=== PATIENT | female | born 1970 | race Caucasian/White ===

== ENCOUNTER → 2017-12-30 15:58 | Outpatient (CLI) | payer OTHER, SELFPAY ==
[2018-01-03 06:23] LABS: HPV APTIMA, High Risk Negative (Negative)
== END ==
PROVIDERS: Family Provider Family Medicine; PCP Family Medicine; Visit Provider Obstetrics & Gynecology
DX: N39.41 Urge incontinence (principal); Z12.4 Encounter for screening for malignant neoplasm of cervix
CPT/HCPCS: 87086; 87088; 88175; G0145

== ENCOUNTER → 2018-03-19 10:24 | Outpatient (CLI) | payer OTHER, SELFPAY ==
--- NOTE | 2018-03-19 10:27 | BI_ITS ---
MAMMOGRAPHY - BILATERAL SCREENING REASON FOR EXAM: Female, 47 years old. Routine annual screening examination. PERTINENT HISTORY: Non-contributory. Ultrasound-guided left breast biopsy performed on January 05, 2017. TECHNIQUE: Digital bilateral breast marie (3D mammographic acquisition) in the CC and MLO projections. 2-D mediolateral oblique (MLO) and craniocaudad (CC) views of both breasts were obtained. CAD: Full Field Digital Mammography with Computer Added Detection was performed. COMPARISON: Comparison is made with prior examination dated December 03, 2016. FINDINGS: Breast Composition: The breasts are heterogeneously dense, which may obscure small masses. There are no dominant masses or suspicious calcifications. A tissue clip marker from prior biopsy is seen in the inferior medial deep portion of the left breast. The nodular density at that site as result. No other significant abnormalities are identified. BI/SCREENING MAMM (CAD), BILAT IMPRESSION: Stable bilateral screening mammogram. Yearly follow-up mammogram recommended. (A) ASSESSMENT CATEGORY: BIRADS Category 2: Benign. A letter regarding these results will be sent to the patient by the facility within 30 days. Approximately 10% of breast cancers are not detected by mammography. A normal mammogram should not delay biopsy of a clinically suspicious abnormality. [id number] Electronically Signed: Eugene Castaneda MD at 13:15 EDT Tel [phone], Service support ,
== END ==
PROVIDERS: Family Provider Family Medicine; PCP Family Medicine; Visit Provider Obstetrics & Gynecology
DX: Z12.31 Encounter for screening mammogram for malignant neoplasm of breast (principal)
CPT/HCPCS: 77063; 77067

== ENCOUNTER 2018-04-16 06:58 | Day surgery (SDC) | payer OTHER, SELFPAY ==
[2018-04-16] VITALS (7 sets, daily range): BP systolic 92–130; BP diastolic 57–92; PULSE 59–63; RESP 16–18; TEMP 36.8–37.3; O2SAT 98–100; BMI 35.0
--- NOTE | 2018-04-16 07:46 | H&P.OPEN ---
Past Medical/Surgical History - Planned Operation Planned Operative Procedure/s: colonoscopy/open access Date of Operative Procedure: 04/16/18 Permit Signed: No S.O.S: No Is This Patient Having a Total Joint: No - Previous Hospitalizations/Surgeries HX Hospitalizations: No HX of Surgeries: csection x2. carpal tunnel bilat. invitro. scar tissue removed from lip as child Any Problems With Anesthesia: No You/Your Family Experience Fever (Hyperthermia) With Anes: No Cholinesterase deficiency: No - Cardiovascular Hx Chest Pain within Last 2 months: No Hx of Irregular Heartbeat and/or Afib: No Hx Heart Attack: No Hx Congestive Heart Failure: No Hx Rheumatic Fever: No Hx Hypertension: Yes - controlled with med Hx Internal Defibrillator: No Hx Pacemaker: No Hx Cardiac Catheterization: No Hx Cardiac Surgery/Stents/Etc.: No Hx Stress Test: No HX Edema: Yes - only during Hx Pain in Legs when Walking/Leg Cramps: No - Respiratory Chronic Cough: No HX of Shortness of Breath: No Hoarseness: No Hx Chronic Obstructive Pulmonary Disease (COPD): No Hx Asthma: No Hx Emphysema: No Hx Sleep Apnea: No Hx Oxygen Use at Home: No Hx Respiratory Tract Infection/Cold (presently): No Do You Snore Loudly (louder than talking or can be heard): Yes Do You Often Feel Tired/ Fatigued/ Sleepy Dring Daytime?: No Has Anyone Observed You Stop Breathing During Sleep?: No Result (for STOP score): Positive Hx Smoking: No Smoking Status: Never smoker - Gastrointestinal Hx Gastroesophageal Reflux: No Hx Gastrointestinal Disorders: No Hx Gastrointestinal Bleed: No Hx Ulcer: No Hx Hiatal Hernia: No Difficulty Chewing/Swallowing: No Recent Onset of Swallowing Problems: No Special diet followed at home: No Hx Unplanned Weight Loss of 20#: No HX Unplanned Weight Gain of 20#: No - Neurological Hx Seizures: No HX Syncope/Blackout Spells/Unconsciousness: No Hx CVA/Stroke: No Hx Transient Ischemic Attacks (TIA): No Hx Multiple Sclerosis: No Hx Parkinson's Disease: No Hx Head/Neck Injury: No Hx Headaches: Yes - migraines in the past Hx Back Injury/Pain: Yes - lower back pain at times Recent Onset of Speech Difficulty: No Restless Legs: No Does patient have nerve stimulator: No Patient instructed to have device shut off: No Rep notified?: No - Blood Disorder Hx Leukemia: No Bleeding Tendencies: Yes - easy bruising Hx Deep Vein Thrombosis: No Hx High Cholesterol: No Blood Transmitted Disease: No Hx Hepatitis: No Hx Cirrhosis: No Hx Anemia: Yes - during only Hx Blood Disorders: No - Reproduction : No Is Patient Lactating: No Hx Hysterectomy: No Hx Tubal Ligation: No Are You Post Menopause: Yes - Genitourinary Hx Renal Disease: No - Musculoskeletal Hx Arthritis: Yes Hx Rheumatoid Arthritis: No Hx Gout: No Recent Onset of an Orthopedic Problem: No - Endocrine Hx Diabetes: No Thyroid Disease: No Hx Steroid Therapy: No - Psycho/Social Hx Substance Use: No Hx Alcohol Use: No Hx Anxiety: Yes - on med Hx Depression: Yes - on med Mental Illness: No - nervous breakdown after childbirth Hx Dementia: No - Miscellaneous Hx Cancer: No Recent Exposure to Contagious Disease: No Active MRSA: No Hx of C-Diff: No Any Loose Teeth: No Allergies No Known Allergies Allergy (Verified 04/16/18 07:24) - Discharge Is Pt Admitted From a Longterm, or a Usp: No Who Could Help: family After D/C, Where Do you Plan to Go: Return Home - Physical Exam General: Alert, Oriented x3, Cooperative, No apparent distress Lungs: Normal air movement Cardiovascular: Regular rate, Regular Rhythm Abdomen: Soft, Non Tender, Non-Distended Vital Signs Temp Pulse Resp BP Pulse Ox 98.2 F 63 16 130/84 H 100 04/16/18 07:25 04/16/18 07:25 04/16/18 07:25 04/16/18 07:25 04/16/18 07:25 Oxygen Delivery Method Room Air Weight: 210 lb 8.663 oz Body Mass Index (BMI) 35.0 Assessment/Plan 48-year-old female for screening colonoscopy 1. Patient reports she is not having any issues at this time. She has no abdominal pain or blood in her stool. She does have a family history of colon cancer in her grandmother. She has never had a colonoscopy in the past. 2. I explained endoscopy in detail to the patient. I explained the risks including but not limited to stroke or heart attack with anesthesia, perforation of the GI tract, bleeding, infection. I explained that any of these could necessitate further emergency surgery. The patient understands and all questions were answered sufficiently. The patient wishes to proceed with procedure. Kamran Rivera MD Pager: [facility] [address] [place] [address] [address] [place] [address] Office: Surgery Risks - Colonoscopy Risks Include but are not Limited To: Risks include but are not limited to: Bleeding, perforation requiring further surgery, inability to complete colonoscopy requiring barium enema.
--- NOTE | 2018-04-16 08:10 | PCM.OPRPT ---
Problem List (1) Screen for colon cancer Status: Acute Report of Operation Date of Procedure: 04/16/18 Pre-Operative Diagnosis: Screening for colon cancer Post-Operative Diagnosis: Normal colonoscopy Surgery/Procedure Performed:: Colonoscopy Description of Procedure: The major risks and benefits associated with the procedure were explained to the patient in detail. The patient verbalized understanding and agreement with the same. The patient was brought to the endoscopy suite. After adequate sedation was achieved, the patient was placed in the left lateral decubitus position and a digital rectal exam was performed. This examination was within normal limits. A well-lubricated colonoscope was then inserted into the rectum and advanced under direct visualization to the level of the cecum. The bowel prep was good. The cecum was identified by both visual and anatomic landmarks. A photograph was taken of the end of the cecum. The scope was then fully withdrawn while examining the color, texture, anatomy and integrity of the mucosa from the cecum to the anal canal. The findings were consistent with normal colonic mucosa. Over 6 minutes were taken to examine the colonic mucosa. Upon reaching the rectum the scope was retroflexed to examine the distal rectal vault. The scope was then straightened and was completely retrieved upon exiting the anal canal and the procedure was terminated. The patient was then transferred to the recovery room in stable condition. Recommendations for follow up: 10 years
== END 2018-04-16 08:50 | disposition home or self-care (01) ==
LOC: EN 06:59 → AC 07:00
PROVIDERS: Family Provider Family Medicine; PCP Family Medicine; Visit Provider Surgery
PROC: 0DJD8ZZ Inspection of Lower Intestinal Tract, Via Natural or Artificial Opening Endoscopic (ICD-10-PCS; CPT 45378; principal; 2018-04-16 07:55)
DX: Z12.11 Encounter for screening for malignant neoplasm of colon (principal); Z80.0 Family history of malignant neoplasm of digestive organs; I10 Essential (primary) hypertension
CPT/HCPCS: 45378; J7120

== ENCOUNTER → 2018-06-18 10:25 | Outpatient (CLI) | payer OTHER, SELFPAY ==
[2018-06-18 10:29] LABS: Bacteria 0 SEEN /hpf (None Seen); Mucous, Urine 0 SEEN /hpf (<or=2+); Red Blood Cells-Urine 0 SEEN /hpf (0-5)
[2018-06-18 12:13] LABS: Absolute Lymphocyte Count 1.49 X10^3/ul (0.83-4.51); Absolute Neutrophil Count 3.2 X10^3/uL (2.0-7.7); Basophil# 0.03 X10^3/uL; Basophil% 0.5 % (0-1); Eosinophil# 0.26 X10^3/uL; Eosinophils% 4.7 % (0-5); Hematocrit 38.5 % (37-47); Hemoglobin 12.3 g/dl (12.0-15.0); Lymphocyte # 1.49 X10^3/ul (4.0); Lymphocyte % 26.9 % (19-41); Mean Corp Hgb Conc 31.9 g/gl (32-36); Mean Corpuscular Hgb 29.7 pg (27.0-32.0); Mean Platelet Vol. 9.6 fl (6.2-12.0); Monocyte# 0.55 X10^3/uL; Monocyte% 9.9 % (0-10); Neutrophil # 3.19 X10^3/uL (2.7-7.7); Neutrophil % 57.8 % (47-70); Platelet Count 313 K/mm3 (150-450); RBC Distribution Width CV 12.9 % (11.6-14.6); RBC Distribution Width SD 42.7 fl (35.1-43.9); Red Blood Count 4.14 M/mm3 (4.2-5.4); White Blood Count 5.5 K/mm3 (4.4-11.0)
[2018-06-18 12:15] LABS: POSITIVE COUNT NO; POSITIVE DIFFERENTIAL NO; POSITIVE MORPHOLOGY NO
[2018-06-18 12:22] LABS: Color, Urine Yellow (Yellow); Glucose, Dipstick Normal (Normal); Ketone-Dipstick Negative (Negative); Leukocyte Esterase-Dipstick 500 /ul (Negative); Nitrite-Dipstick Negative (Negative); Occult Blood-Urine Negative /ul (Negative); Protein-Dipstick Negative (Negative); Specific Gravity, Urine 1.015 (1.002-1.030); Urine Bilirubin Dipstick Negative (Negative); Urine Clarity Clear (Clear); Urine Urobilinogen Normal (Normal)
[2018-06-18 12:29] LABS: Squamous Epithelial Cells - UA 5-10 SEEN /hpf (5-10); White Blood Cells 5-10 SEEN /hpf (0-5)
[2018-06-18 12:49] LABS: ALB/GLOB Ratio 1.1 RATIO (0.9-2.4); AST(SGOT) 22 U/L (15-37); Alanine Aminotransfer ALT/SGPT 46 U/L (13-56); Albumin, Serum 4.3 g/dL (3.2-5.0); Alkaline Phosphatase 62 U/L (45-117); Anion Gap 9 (5-15); BUN 15 mg/dL (7-18); BUN/Creat Ratio 24.6 RATIO (10-20); Calcium,Total 9.6 mg/dL (8.5-10.1); Chloride 104 mmol/L (98-107); Cholesterol 195 mg/dL (200); Creatinine, Serum 0.61 mg/dL (0.55-1.02); EST Glomerular Filtration Rate 110 mL/min (>60); Est Glom Filt Rate - Afr Amer 133 mL/min (>60); Globulin 3.8 g/dL (2.2-4.2); Glucose 83 mg/dL (74-106); High Density Lipoprotein 42 mg/dL; Potassium 4.1 mmol/L (3.5-5.1); Protein, Total 8.1 g/dL (6.4-8.2); Sodium Level 138 mmol/L (136-145); Thyroid Stim Hormone (TSH) 3.94 uIU/mL (0.358-3.74); Triglycerides 248 mg/dL; Very Low Density Lipoprotein 50 mg/dL (5-40)
== END ==
PROVIDERS: Family Provider Family Medicine; PCP Family Medicine; Visit Provider Family Medicine
DX: I10 Essential (primary) hypertension (principal)
CPT/HCPCS: 36415; 80053; 80061; 81001; 84443; 85025

== ENCOUNTER → 2018-06-25 09:54 | Outpatient (CLI) | payer OTHER, SELFPAY ==
[2018-06-25 12:47] LABS: T4 Free Direct 0.83 ng/dL (0.76-1.46)
[2018-06-30 11:51] LABS: Anti-Thyroglobulin AB < 1.0 IU/mL (0.0-0.9); Thyroglobulin, Serum Qt. 23.3 ng/mL (1.5-38.5); Thyroid Peroxidase AB 19 IU/mL (0-34)
== END ==
PROVIDERS: Family Provider Family Medicine; PCP Family Medicine; Visit Provider Family Medicine
DX: R79.89 Other specified abnormal findings of blood chemistry (principal)
CPT/HCPCS: 36415; 84432; 84439; 86376; 86800

== ENCOUNTER → 2018-11-16 11:49 | Outpatient (CLI) | payer OTHER, SELFPAY ==
[2018-11-06 10:20] VITALS: BMI 35.0
[2018-11-16 14:44] LABS: T4 Free Direct 0.88 ng/dL (0.76-1.46); Thyroid Stim Hormone (TSH) 3.97 uIU/mL (0.358-3.74)
[2018-11-18 10:20] LABS: Anti-Thyroglobulin AB < 1.0 IU/mL (0.0-0.9); Thyroglobulin, Serum Qt. 19.1 ng/mL (1.5-38.5); Thyroid Peroxidase AB 18 IU/mL (0-34)
== END ==
PROVIDERS: Family Provider Family Medicine; PCP Family Medicine; Visit Provider Family Medicine
DX: R79.89 Other specified abnormal findings of blood chemistry (principal); I10 Essential (primary) hypertension
CPT/HCPCS: 36415; 84432; 84439; 84443; 86376; 86800

== ENCOUNTER → 2018-11-19 10:34 | Outpatient (CLI) | payer OTHER, SELFPAY ==
[2018-11-06 10:20] VITALS: BMI 35.0
--- NOTE | 2018-11-19 10:38 | RAD_ITS ---
STUDY: X-RAY - LEFT KNEE REASON FOR EXAM: Female, 48 years old. Left knee pain TECHNIQUE: 3 view(s) of the knee. COMPARISON: None. FINDINGS: Normal visualized distal femur. Normal visualized proximal tibia and fibula. Normal proximal tibiofibular articulation. There is severe degenerative arthrosis of the medial femorotibial compartment with severe joint space narrowing. There is mild varus deformity. There is mild degenerative arthrosis of the lateral femorotibial compartment. There is moderate degenerative arthrosis of the patellofemoral articulation. Moderate sized osteophytes along the superior and inferior patella noted. There is a moderate volume joint effusion. There is soft tissue swelling of the anterior knee. RAD/Knee 3 Views IMPRESSION: Tricompartmental osteoarthrosis (medial dominant) with genu varus, joint effusion and anterior soft tissue swelling (possibly prepatellar bursal collection). Electronically Signed: Mike Bob MD at 7:52 EST , Service support ,
--- NOTE | 2018-11-19 10:38 | RAD_ITS ---
STUDY: X-RAY - RIGHT KNEE REASON FOR EXAM: Female, 48 years old. Right knee pain TECHNIQUE: 3 view(s) of the knee. COMPARISON: None. FINDINGS: Normal visualized distal femur. Normal visualized proximal tibia and fibula. Normal proximal tibiofibular articulation. There is moderate degenerative arthrosis of the medial femorotibial compartment with moderate joint space narrowing. There is mild degenerative arthrosis of the lateral femorotibial compartment. There is mild degenerative arthrosis of the patellofemoral articulation. There is a soft tissue prominence in the suprapatellar region suggesting a small volume joint effusion. The soft tissue structures are unremarkable. RAD/Knee 3 Views IMPRESSION: Medial dominant tricompartmental osteoarthrosis. Small joint effusion. Electronically Signed: Mike Bob MD at 7:53 EST , Service support ,
== END ==
PROVIDERS: Family Provider Family Medicine; PCP Family Medicine; Referring Provider Family Medicine; Visit Provider Family Medicine
DX: M25.561 Pain in right knee (principal); M25.562 Pain in left knee
CPT/HCPCS: 73562

== ENCOUNTER → 2019-04-11 10:33 | Outpatient (CLI) | payer OTHER, SELFPAY ==
[2018-11-06 10:20] VITALS: BMI 35.0
[2019-03-22 12:21] VITALS: BMI 35.0
--- NOTE | 2019-04-11 10:36 | BI_ITS ---
MAMMOGRAPHY - BILATERAL SCREENING 3-D TOMOSYNTHESIS REASON FOR EXAM: Female, 49 years old. Bilateral Screening 3-D tomosynthesis PERTINENT HISTORY: History of ultrasound guided biopsy of left breast in 2017. TECHNIQUE: 2-D mammograms and 3-D Tomosynthesis of the breast (s) were performed. CAD was performed. COMPARISON: March 19, 2018, December 30, 20122016, December 03, 2016 FINDINGS: The breast composition is Scattered benign calcifications are seen. No dense spiculated masses or suspicious microcalcifications are identified. No architectural distortion is identified. There is no skin thickening or retraction. There has been no significant change since the prior study. BI/SCREEN MAMM (CAD) W/ISAI BILAT IMPRESSION: No mammographic signs of malignancy. Routine yearly mammograms recommended. ASSESSMENT CATEGORY: BIRADS Category 2: Benign. A letter regarding these results will be sent to the patient by the facility within 30 days. FOLLOW UP RECOMMENDATION: Yearly follow up mammogram recommended. (A) Approximately 10% of breast cancers are not detected by mammography. A normal mammogram should not delay biopsy of a clinically suspicious abnormality. Electronically Signed: Salbador Burnham MD at 16:39 EDT , Service support ,
== END ==
PROVIDERS: Family Provider Family Medicine; PCP Family Medicine; Referring Provider Obstetrics & Gynecology; Visit Provider Obstetrics & Gynecology
DX: Z12.31 Encounter for screening mammogram for malignant neoplasm of breast (principal)
CPT/HCPCS: 77063; 77067

== ENCOUNTER → 2019-05-25 11:24 | Outpatient (CLI) | payer OTHER, SELFPAY ==
[2019-03-22 12:21] VITALS: BMI 35.0
[2019-05-25 14:04] LABS: Absolute Lymphocyte Count 1.66 X10^3/uL (0.83-4.51); Absolute Neutrophil Count 3.3 X10^3/uL (2.0-7.7); Basophil# 0.04 X10^3/uL; Basophil% 0.7 % (0-1); Eosinophil# 0.21 X10^3/uL; Eosinophils% 3.6 % (0-5); Hematocrit 38.4 % (37-47); Hemoglobin 12.2 g/dL (12.0-15.0); Lymphocyte # 1.66 X10^3/ul (4.0); Lymphocyte % 28.3 % (19-41); Mean Corp Hgb Conc 31.8 g/dL (32-36); Mean Corpuscular Volume 94.6 fL (81-99); Mean Platelet Vol. 9.6 fl (6.2-12.0); Monocyte# 0.61 X10^3/uL; Monocyte% 10.4 % (0-10); NRBC Flagged by Analyzer 0 % (0-5); Neutrophil # 3.34 X10^3/uL (2.7-7.7); Neutrophil % 56.8 % (47-70); Platelet Count 318 K/mm3 (150-450); RBC Distribution Width CV 12.6 % (11.6-14.6); RBC Distribution Width SD 43.9 fl (35.1-43.9); Red Blood Count 4.06 M/mm3 (4.2-5.4); White Blood Count 5.9 K/mm3 (4.4-11.0)
[2019-05-25 14:30] LABS: ALB/GLOB Ratio 1.1 RATIO (0.9-2.4); AST(SGOT) 18 U/L (15-37); Alanine Aminotransfer ALT/SGPT 47 U/L (13-56); Albumin, Serum 4.1 g/dL (3.2-5.0); Alkaline Phosphatase 60 U/L (45-117); Anion Gap 7 (5-15); BUN 16 mg/dL (7-18); BUN/Creat Ratio 28.3 RATIO (10-20); Calcium,Total 9.6 mg/dL (8.5-10.1); Chloride 104 mmol/L (98-107); Creatinine, Serum 0.57 mg/dL (0.55-1.02); EST Glomerular Filtration Rate 120 mL/min (>60); Est Glom Filt Rate - Afr Amer 145 mL/min (>60); Globulin 3.6 g/dL (2.2-4.2); Glucose 82 mg/dL (74-106); Potassium 4.1 mmol/L (3.5-5.1); Protein, Total 7.7 g/dL (6.4-8.2); Sodium Level 138 mmol/L (136-145); T4 Free Direct 0.97 ng/dL (0.76-1.46); Thyroid Stim Hormone (TSH) 2.43 uIU/mL (0.358-3.74)
[2019-05-27 15:57] LABS: Anti-Thyroglobulin AB < 1.0 IU/mL (0.0-0.9); Thyroglobulin, Serum Qt. 14.3 ng/mL (1.5-38.5); Thyroid Peroxidase AB 22 IU/mL (0-34)
== END ==
PROVIDERS: Family Provider Family Medicine; PCP Family Medicine; Referring Provider Family Medicine; Visit Provider Family Medicine
DX: E03.9 Hypothyroidism, unspecified (principal); I10 Essential (primary) hypertension
CPT/HCPCS: 36415; 80053; 80178; 84432; 84439; 84443; 85025; 86376; 86800

== ENCOUNTER → 2019-12-09 10:55 | Outpatient (CLI) | payer OTHER, SELFPAY ==
[2019-10-13 13:03] VITALS: BMI 40.5
[2019-12-09 13:49] LABS: ALB/GLOB Ratio 1.2 RATIO (0.9-2.4); AST(SGOT) 24 U/L (15-37); Alanine Aminotransfer ALT/SGPT 52 U/L (13-56); Albumin, Serum 4.2 g/dL (3.2-5.0); Alkaline Phosphatase 62 U/L (45-117); Anion Gap 7 (5-15); BUN 14 mg/dL (7-18); BUN/Creat Ratio 26.7 RATIO (10-20); Calcium,Total 9.8 mg/dL (8.5-10.1); Chloride 103 mmol/L (98-107); Creatinine, Serum 0.52 mg/dL (0.55-1.02); EST Glomerular Filtration Rate 131 mL/min (>60); Est Glom Filt Rate - Afr Amer 158 mL/min (>60); Globulin 3.5 g/dL (2.2-4.2); Glucose 78 mg/dL (74-106); Potassium 4.2 mmol/L (3.5-5.1); Protein, Total 7.7 g/dL (6.4-8.2); Sodium Level 136 mmol/L (136-145)
== END ==
PROVIDERS: PCP Family Medicine; Referring Provider Family Medicine; Visit Provider Family Medicine
DX: I10 Essential (primary) hypertension (principal)
CPT/HCPCS: 36415; 80053

== ENCOUNTER → 2019-12-19 10:31 | Outpatient (CLI) | payer OTHER, SELFPAY ==
[2019-12-19 10:23] VITALS: BMI 40.5
--- NOTE | 2019-12-19 10:31 | RAD_ITS ---
STUDY: X-RAY - RIGHT KNEE REASON FOR EXAM: Bilateral knee pain, no trauma. TECHNIQUE: 4 view(s) of the knee. COMPARISON: Radiographs 11/19/2018. FINDINGS: Normal visualized distal femur. Normal visualized proximal tibia and fibula. Normal proximal tibiofibular articulation. There are marginal osteophytes and severe joint space narrowing of the medial femorotibial compartment similar to the prior study. There are marginal osteophytes without joint space narrowing of the lateral femorotibial compartment. There are marginal osteophytes and moderate joint space narrowing of the patellofemoral articulation similar to the prior study. There is a joint effusion similar to the prior study. RAD/Knee 4 or More Views IMPRESSION: Arthrosis of the medial femorotibial and patellofemoral compartments. Joint effusion. Electronically Signed: Cruz Arcos MD at 12:16 EST Tel , Service support ,
--- NOTE | 2019-12-19 10:33 | RAD_ITS ---
STUDY: X-RAY - LEFT KNEE REASON FOR EXAM: Bilateral knee pain, no trauma. TECHNIQUE: 4 view(s) of the knee. COMPARISON: Radiographs 11/19/2018. FINDINGS: Normal visualized distal femur. Normal visualized proximal tibia and fibula. Normal proximal tibiofibular articulation. There are marginal osteophytes and severe joint space narrowing medial femorotibial compartment as on the prior study. There are marginal osteophytes without joint space narrowing of the lateral femorotibial compartment. There are marginal osteophytes and moderate to severe joint space narrowing of the patellofemoral articulation increased since the prior study. There is a joint effusion, decreased since the prior study. RAD/Knee 4 or More Views IMPRESSION: Arthrosis of the medial femorotibial and patellofemoral compartments. Joint effusion. Electronically Signed: Cruz Arcos MD at 11:52 EST Tel , Service support ,
== END ==
PROVIDERS: PCP Family Medicine; Referring Provider Orthopaedic Surgery; Visit Provider Orthopaedic Surgery
DX: M25.561 Pain in right knee (principal); M25.562 Pain in left knee
CPT/HCPCS: 73564

== ENCOUNTER 2019-12-28 09:18 | Outpatient (RCR) | payer OTHER, SELFPAY ==
[2019-12-19 10:23] VITALS: BMI 40.5
[2019-12-21 10:47] VITALS: BMI 40.5
--- NOTE | 2019-12-28 10:28 | HP.PTEVAL_ITS ---
Patient's Visit Information BAY AVERY is a 49 year old F referred to Physical Therapy by Kedar Khan DO with a diagnosis of BILATERAL KNEE PAIN. Date of Evaluation: 12/28/19 Physical Therapist: Fan Woody, PT, Cert MDT, OCS - Visit Plan Frequency: 2x /Week Duration: 2WEEKS Plan: PT INTERVETIONS ROM,GRADED PRE'S QUADS/HAMS /HIP,NUSTEP - Subjective Subjective: This 49 y/o female presents to physical therapy with bilateral l knee pain.Patient has had knee pain several years. Seen family DR one year tried cortizone injections.Then seen Dr Cornell did x-rays showed DJD L > R severe changes . Patient is scheduled for TKR left 01/17/20 . Patient goal to work on ROM strength.Patient unable to squat /kneel. Patient does steps one at time. Patient denies parathesia/tingling. MEDS meloxicam. Patient sleeping good. Patient condtion affects QOL and function.Symptoms worse standing 1/2 hr and elevation from chair. SOCAIL: . VOCATION: home - Pain Bilateral Knee Pain Intensity (Out of 10): 6 Pain Intensity Range: 10 - Objective POSTURE: mild foward posture knee varus. PALAPTION: medial/lateeral joint line. GAIT: reciprocal pattern antalgic gait knee flexed. EDEAM: 1+ L> R. STAIRS: one step at time alternating. AROM: L 0-110 supine flexion,R 0-117 supinme knee flexion. MMT: quads/hams 4-/5,ankle 4/5 - Goals Goal 1:: Independant with HEP Goal Time Frame: 2-4 Weeks Goal 2:: Patient decrease knee pain by 40% or > to improve function Goal Time Frame: 2-4 Weeks Goal 3:: Patient to improve strength quads/hams 4/5 to improve gait Goal Time Frame: 2-4 Weeks Goal 4:: Patient to increase AROM knee by 5 degrees or > to improve function. Goal Time Frame: 2-4 Weeks Goal 5:: Pateint improve LFES score by 5 points or> to improve QOL. Goal Time Frame: 2-4 Weeks - Rehabilitation Potential Physical Therapy Diagnosis: This patient has bilateral knee pain with DJD L> R thus will under go LTKR due to pain ,ROM loss,strength impairs gait and function thus benifit from skilled PT Rehabilitation Potential: Good - Anticipated Interventions Patient/Client Instruction: Educate patient on: Condition, Plan of Care For the Purpose of:: To decrease pain, To increase ROM, To improve muscle performance and motor function, To improve ability to perform ADL's, To increase tolerance to activity/condition/position, To improve ability of physical actions for home/community/work/leisure, To improve gait and locomotor functions, To improve health of tissue, To decrease soft tissue restriction, To increase flexibility/ROM, To improve endurance Therapeutic Exercise to Include: Strength training, Endurance training, Flexibilty training, Active ROM For the Purpose of:: To decrease pain, To increase ROM, To improve muscle performance and motor function, To improve ability to perform ADL's, To increase tolerance to activity/condition/position, To improve ability of physical actions for home/community/work/leisure, To improve health of tissue, To decrease soft tissue restriction, To increase flexibility/ROM Thank you for the opportunity to evaluate your patient. For Medicare and Medicare HMO plans, please review the plan of care and approve it. It will need to be FAXED BACK to us at [phone] for Medicare purposes. For Medicare only, by signing this I certify the plan of care. Please let me know if there are questions or concerns regarding this plan of care. Physician Signature: Date:
--- NOTE | 2020-01-23 13:33 | HP.PT.NRP ---
BAY AVERY was seen in my office for initial evaluation on 12/28/19. The following Plan of Care was established for this patient: Initial Frequency: 2x /Week Initial Duration: 2WEEKS Patient/Client Instruction: Educate patient on: Condition, Plan of Care For the Purpose of:: To decrease pain, To increase ROM, To improve muscle performance and motor function, To improve ability to perform ADL's, To increase tolerance to activity/condition/position, To improve ability of physical actions for home/community/work/leisure, To improve gait and locomotor functions, To improve health of tissue, To decrease soft tissue restriction, To increase flexibility/ROM, To improve endurance Therapeutic Exercise to Include: Strength training, Endurance training, Flexibilty training, Active ROM For the Purpose of:: To decrease pain, To increase ROM, To improve muscle performance and motor function, To improve ability to perform ADL's, To increase tolerance to activity/condition/position, To improve ability of physical actions for home/community/work/leisure, To improve health of tissue, To decrease soft tissue restriction, To increase flexibility/ROM This patient was last seen in our office . Pertinent comments regarding their Physical therapy will appear below: Patient seen for PT Flory for HEP for pre exercise for TKR ,thus is d/c to HEP. At this point I will be discontinuing this patient from physical therapy. I would be happy to see this patient again in the future if found appropriate by the physician. Thank you! Fan Woody, PT, Cert MDT, OCS
== END 2019-12-28 19:00 | disposition home or self-care (01) ==
LOC: PT 09:18
PROVIDERS: PCP Family Medicine; Referring Provider Orthopaedic Surgery; Visit Provider Orthopaedic Surgery
DX: M17.0 Bilateral primary osteoarthritis of knee (principal)
CPT/HCPCS: 97110; 97162

== ENCOUNTER → 2020-04-13 09:32 | Outpatient (CLI) | payer OTHER, SELFPAY ==
[2019-09-07 09:32] VITALS: BMI 35.0
[2019-12-21 10:47] VITALS: BMI 40.5
--- NOTE | 2020-04-13 09:55 | BI_ITS ---
MAMMOGRAPHY - BILATERAL SCREENING 3-D TOMOSYNTHESIS REASON FOR EXAM: Female, 50 years old. Routine screening PERTINENT HISTORY: BILAT SCREENING - NO FAM HX - LT U/S BX 2017 - RT MOLE MARKED. TECHNIQUE: 2-D mammograms and 3-D Tomosynthesis of the breast (s) were performed. CAD was performed. COMPARISON: 04/11/2019 FINDINGS: The breast composition is heterogeneously dense that can obscure small breast masses. Scattered benign calcifications are seen. No dense spiculated masses or suspicious microcalcifications are identified. No architectural distortion is identified. There is no skin thickening or retraction. There has been no significant change since the prior study. BI/SCREEN MAMM (CAD) W/ISAI BILAT IMPRESSION: No mammographic signs of malignancy. Routine yearly mammograms recommended. ASSESSMENT CATEGORY: BIRADS Category 2: Benign. A letter regarding these results will be sent to the patient by the facility within 30 days. FOLLOW UP RECOMMENDATION: Yearly follow up mammogram recommended. (A) Approximately 10% of breast cancers are not detected by mammography. A normal mammogram should not delay biopsy of a clinically suspicious abnormality. Electronically Signed: Jose Farooq MD at 11:16 EDT , Service support ,
== END ==
PROVIDERS: Family Provider Family Medicine; PCP Family Medicine; Referring Provider Obstetrics & Gynecology; Visit Provider Obstetrics & Gynecology
DX: Z12.31 Encounter for screening mammogram for malignant neoplasm of breast (principal)
CPT/HCPCS: 77063; 77067

== ENCOUNTER → 2020-10-03 11:42 | Outpatient (CLI) | payer OTHER, SELFPAY ==
[2019-12-21 10:47] VITALS: BMI 40.5
[2020-10-03 13:18] LABS: Absolute Lymphocyte Count 1.68 X10^3/uL (0.83-4.51); Absolute Neutrophil Count 4.3 X10^3/uL (2.0-7.7); Basophil# 0.05 X10^3/uL; Basophil% 0.7 % (0-1); Eosinophil# 0.34 X10^3/uL; Eosinophils% 4.8 % (0-5); Hematocrit 40.4 % (37-47); Hemoglobin 12.5 g/dL (12.0-15.0); Lymphocyte # 1.68 X10^3/ul (4.0); Lymphocyte % 23.6 % (19-41); Mean Corp Hgb Conc 30.9 g/dL (32-36); Mean Corpuscular Hgb 28.3 pg (27.0-32.0); Mean Corpuscular Volume 91.6 fL (81-99); Mean Platelet Vol. 9.3 fl (6.2-12.0); Monocyte# 0.69 X10^3/uL; Monocyte% 9.7 % (0-10); NRBC Flagged by Analyzer 0 % (0-5); Neutrophil # 4.32 X10^3/uL (2.7-7.7); Neutrophil % 60.8 % (47-70); Platelet Count 372 K/mm3 (150-450); RBC Distribution Width CV 12.7 % (11.6-14.6); Red Blood Count 4.41 M/mm3 (4.2-5.4); White Blood Count 7.1 K/mm3 (4.4-11.0)
[2020-10-03 13:41] LABS: AST(SGOT) 24 U/L (15-37); Alanine Aminotransfer ALT/SGPT 43 U/L (13-56); Albumin, Serum 3.9 g/dL (3.2-5.0); Alkaline Phosphatase 67 U/L (45-117); Anion Gap 6 (5-15); BUN 11 mg/dL (7-18); BUN/Creat Ratio 20.5 RATIO (10-20); Calcium,Total 9.6 mg/dL (8.5-10.1); Chloride 103 mmol/L (98-107); Creatinine, Serum 0.54 mg/dL (0.55-1.02); EST Glomerular Filtration Rate 127 mL/min (>60); Est Glom Filt Rate - Afr Amer 153 mL/min (>60); Glucose 111 mg/dL (74-106); Potassium 3.6 mmol/L (3.5-5.1); Protein, Total 7.9 g/dL (6.4-8.2); Sodium Level 138 mmol/L (136-145)
[2020-10-04 10:36] LABS: Hemoglobin A1c 5.3 % (3.8-5.6)
== END ==
PROVIDERS: PCP Family Medicine; Referring Provider Family Medicine; Visit Provider Family Medicine
DX: I10 Essential (primary) hypertension (principal); R73.09 Other abnormal glucose
CPT/HCPCS: 36415; 80053; 83036; 85025

== ENCOUNTER → 2020-11-26 07:59 | Outpatient (CLI) | payer OTHER, SELFPAY ==
[2020-11-14 10:05] VITALS: BMI 36.2
--- NOTE | 2020-11-26 08:01 | CT_ITS ---
STUDY: CT SCAN OF THE LOWER EXTREMITY LEFT REASON FOR EXAM: Female, 50 years old. LEFT KNEE-LENNOX PROTOCOL RADIATION DOSAGE (If Supplied By Facility): CTDIvol = ( 18.85 ) mGy, DLP = ( 1445.25 ) mGycm. Individualized dose optimization techniques were used for this CT.? TECHNIQUE: Multiple axial tomographic images of the left lower extremity were obtained without intravenous contrast administration. Coronal and sagittal reconstruction was obtained as well. COMPARISON: None. FINDINGS: Imaging of the left hip joint was performed. No significant joint space narrowing is seen. Degenerative spurring is seen along the medial and lateral femoral condyles as well as the medial and lateral tibial plateau. Moderate degree of joint space narrowing involving the medial compartment of the knee joint. Moderate degree of degenerative changes involving the patellofemoral joint with anterior distal femoral spur. A spur is also seen along the articular surface of the patella superiorly and inferiorly. Moderate-sized joint effusion. Imaging of the ankle joint was performed. There is evidence of a spur at the insertion of the Achilles tendon. CT/Extremity Lower without Contra IMPRESSION: Moderate degree of joint space narrowing involving the medial compartment of knee joint as well as the patellofemoral joint with a moderate-sized joint effusion. Electronically Signed: Eugene Castaneda MD at 9:28 EST , Service support ,
== END ==
PROVIDERS: PCP Family Medicine; Referring Provider Orthopaedic Surgery; Visit Provider Orthopaedic Surgery
DX: M17.0 Bilateral primary osteoarthritis of knee (principal)
CPT/HCPCS: 73700

== ENCOUNTER 2020-12-04 08:44 | Day surgery (SDC) | payer OTHER, SELFPAY ==
[2020-11-14 10:05] VITALS: BMI 36.2
--- NOTE | 2020-11-23 11:01 | EKG12_ITS ---
Test Reason : PREOP Blood Pressure : / mmHG Vent. Rate : 060 BPM Atrial Rate : 060 BPM P-R Int : 172 ms QRS Dur : 084 ms QT Int : 410 ms P-R-T Axes : 048 003 042 degrees QTc Int : 410 ms Normal sinus rhythm Poor R wave progression Confirmed by REYES MEYER, ROMULO ([id number]), blackener DEAN CARTWRIGHT ([id number]) on 11/26/2020 1:22:02 PM Referred By: Kedar Khan Confirmed By:ROMULO CHAMBERS MD
[2020-11-23 12:43] LABS: Absolute Lymphocyte Count 1.66 X10^3/uL (0.83-4.51); Absolute Neutrophil Count 2.9 X10^3/uL (2.0-7.7); Basophil# 0.05 X10^3/uL; Basophil% 0.9 % (0-1); Eosinophil# 0.22 X10^3/uL; Eosinophils% 4.1 % (0-5); Hematocrit 38.6 % (37-47); Hemoglobin 12.2 g/dL (12.0-15.0); Lymphocyte # 1.66 X10^3/ul (4.0); Lymphocyte % 31.1 % (19-41); Mean Corp Hgb Conc 31.6 g/dL (32-36); Mean Corpuscular Hgb 28.8 pg (27.0-32.0); Mean Platelet Vol. 9.5 fl (6.2-12.0); Monocyte# 0.52 X10^3/uL; Monocyte% 9.8 % (0-10); NRBC Flagged by Analyzer 0 % (0-5); Neutrophil # 2.87 X10^3/uL (2.7-7.7); Neutrophil % 53.9 % (47-70); Platelet Count 342 K/mm3 (150-450); RBC Distribution Width CV 13.6 % (11.6-14.6); RBC Distribution Width SD 46.1 fl (35.1-43.9); Red Blood Count 4.24 M/mm3 (4.2-5.4); White Blood Count 5.3 K/mm3 (4.4-11.0)
[2020-11-23 12:55] LABS: Prothrombin Time (Protime)PT. 12.3 SECONDS (11.7-14.9)
[2020-11-23 12:56] LABS: Partial Thromboplast Time 26.1 Seconds (24.1-36.2)
[2020-11-23 13:17] LABS: Anion Gap 6 (5-15); BUN 14 mg/dL (7-18); BUN/Creat Ratio 24.4 RATIO (10-20); Calcium,Total 10.1 mg/dL (8.5-10.1); Chloride 102 mmol/L (98-107); Creatinine, Serum 0.57 mg/dL (0.55-1.02); EST Glomerular Filtration Rate 117 mL/min (>60); Est Glom Filt Rate - Afr Amer 142 mL/min (>60); Glucose 81 mg/dL (74-106); Potassium 3.8 mmol/L (3.5-5.1); Sodium Level 136 mmol/L (136-145)
[2020-11-25 09:41] LABS: Fructosamine 237 umol/L (0-285)
[2020-12-04] VITALS (11 sets, daily range): BP systolic 90–152; BP diastolic 56–86; PULSE 56–95; RESP 16–18; TEMP 36.4–37.5; O2SAT 94–100; BMI 38.0
[2020-12-04] MEDS: Scopolamine 1mg/72hr Patch 1 PATCH TD (09:44)
[2020-12-04] MEDS: Gabapentin 600 MG Tablet PO (09:45)
[2020-12-04] MEDS: Celecoxib 200 MG Capsule 400 MG PO (09:45)
[2020-12-04] MEDS: Acetaminophen 500 MG Tablet 1000 MG PO ×2 (09:45→17:35)
--- NOTE | 2020-12-04 09:48 | PCM.HP.BLA ---
History and Physical Date of Admission: 12/04/20 Intake Vital Signs 11/14/20 Height 5 ft 4 in 11/14/20 Weight: 211 lb 11/14/20 BMI 36.2 Intake Visit Reasons: LEFT KNEE Chief Complaint: left knee Accompanied by: self Is patient in pain?: Yes Allergies No Known Allergies Allergy (Verified 12/21/19 12:26) Medications lithium carbonate 300 mg capsule 300 mg PO QHS cap 12/30/17 [History Confirmed 11/14/20] meloxicam 15 mg tablet PO 30 Days #30 tab 03/22/19 [History Confirmed 11/14/20] vitamin#30 30 mg iron-10 mg iron-folic acid 1 mg-omg3 capsule cap PO cap 09/07/19 [History Confirmed 11/14/20] sertraline 100 mg tablet 100 mg PO QDAY #30 tab 09/07/19 [Rx Confirmed 11/14/20] hydrochlorothiazide 12.5 mg tablet PO 12/21/19 [History Confirmed 11/14/20] metoprolol succinate 100 mg tablet,extended release 24 hr PO 12/21/19 [History Confirmed 11/14/20] oxybutynin chloride 10 mg tablet,extended release 24 hr mg PO 12/21/19 [History Confirmed 11/14/20] [facility] Medical History (System 12/21/19 @ 12:26 by Teresita Jacob) Abnormal Pap smear of cervix (Acute) Anemia (Acute) Arthritis (Acute) Back pain (Acute) Bipolar disorder (Acute) Carpal tunnel syndrome (Acute) Fatigue (Acute) Knee pain (Acute) Hypertension (Chronic) Surgical History (System 12/21/19 @ 12:26 by Teresita Jacob) delivery delivered (Acute) History of carpal tunnel surgery (Acute) lip surgery (Acute) Family History (System 12/21/19 @ 12:26 by Teresita Jacob) Mother Ovarian cancer Grandfather Myocardial infarction Grandmother Colon cancer Social History (Updated 11/14/20 @ 10:[address] 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 Kedar Khan, DO 11/14/20 0801. BAY AVERY is a 50 year old F here today for BL knee pain. She states that the left knee is worse then the right. She is ambulating with a single point cane today. She has had left knee pain for about 1 year which has worsened. She has had steroid injections, gel injections and bracing for BL knees which was not effective. Her last steroid injection in BL knees were April 2020. SHe has generalized knee pain of the left knee. She states that she has increased pain with stairs and hill climbing. She does have swelling of the left knee. Denies any surgery of the left knee. She is unable to fully extend the left knee. Denies any recent injuries. Right knee is painful over the anterior knee. ROS Musc Reports joint pain, Reports joint swelling, Reports limited joint movement, Denies muscle weakness, Denies numbness, Denies radiating pain into limb, Denies tingling Skin/Breast Denies redness, Denies lesions, Denies itching, Denies rash, Denies skin swelling Neuro No numbness, No tingling Ortho Exam General General: Yes no acute distress Neurologic: Yes alert, Yes oriented x3 Psychologic: Yes reasonable and appropriate Right Knee Patella Translation: 1 Left Knee Skin/Wound: No ecchymosis, No erythema, Yes swelling Homans Sign: No 2+: Effusion Knee ROM: No ROM-Extension -20 to 0 (lacking 7), No ROM-Flexion 0-140 (75) Stability: NML: Anterior Drawer, NML: Posterior Drawer Patella Translation: 1 Patella Grind: Yes KNEE: pedal pulses intact sensation intact to light touch throughout lower left leg Supplemental Info 12/19/2019 x-ray bilateral knees: Tricompartmental arthrosis with [id number] medially worse left knee Assessment & Plan Problems 1. Primary osteoarthritis of knees, bilateral M17.0 Plan Patient educated that her last x-rays showed that she had advanced OA of the BL knees. Treatment options are do nothing or steroid injection or gel injections or bracing or PT or TKA. Patient has tried all conservative care at this time and she wishes to proceed with left TKA at this time. Reviewed the pre-operative plans with the patient. Risks and benefits of the procedure were fully explained, including but not limited to infection, neurovascular injury, continued pain, arthritis, stiffness, need for further surgery, re-injury, DVT, PE, general risks of anesthesia, and loss of limb or life. The patient understands all the risks and does wish to proceed with written consent for left total knee arthroplasty with robotic assist. Risks, benefits and alternatives of surgery reviewed including but not limited to bleeding, infection, nerve, artery and/or tissue damage, fracture, VTE, mechanical feel of the knee, continued pain, stiffness and expected post-operative course. She also wishes to proceed with IOVERA if this is covered by insurance. She also wishes to have written approval from insurance for PT, IOVERA and surgery. We will get the patient started in pre-hab prior to surgery to help with ROM. Follow up 2 weeks post op or sooner if pain, swelling, numbness or associated symptoms, or concerns develop. All questions answered. Patient in agreement of plan. Coding Level of Care Code Off vis,est,level 3 Diagnoses Primary osteoarthritis of knees, bilateral M17.0 I have re-examined the patient. There are no clinical changes since date of exam Procedure Criteria Procedure Type: Elective COVID Risk Discussion: The surgeon/proceduralist and patient have discussed in detail the risk of exposure to and/or potential harm posed by the COVID-19 virus with having a surgery/procedure at this time versus the risk of delaying the surgery/procedure. It is not possible to know either the risk of delaying the surgery or procedure or chance of getting an infection with perfect accuracy, but a joint decision was made between the patient and the surgeon/proceduralist to proceed at this time with the scheduled surgery/procedure as indicated on the consent form.
[2020-12-04] MEDS: Lactated Ringers 1,000 ML 100 ML IV (09:55)
[2020-12-04 10:12] LABS: Magnesium 2.3 mg/dL (1.6-2.6)
[2020-12-04 10:26] LABS: Bedside Glucose 92 mg/dL (70-110)
[2020-12-04] MEDS: Cefazolin 2 GM in 0.9% Normal Saline 100 ML IV (11:01)
[2020-12-04] MEDS: dexAMETHasone 10 MG/ML Vial IV (11:20)
[2020-12-04] MEDS: Betamethasone/Betamethasone 30 MG/5 ML Vial (11:50)
[2020-12-04] MEDS: Bupivacaine 0.5% PF 10 ML VIAL (11:50)
[2020-12-04] MEDS: Epinephrine (1 mg/ml) 1 MG/ML VIAL (11:50)
[2020-12-04] MEDS: 0.9% Normal Saline (Pres. free 10 ML Vial (11:51)
--- NOTE | 2020-12-04 13:10 | PCM.DC.ORTHO ---
Discharge Diet: No Restrictions Weight Bearing Status: Weight bearing as tolerated Keep extremity elevated above heart level: Operative Extremity Call your doctor if you observe: Shortness of breath, Chest pain Additional Instructions: Ice and elevate one week while not ambulating. Ambulation is encouraged. Weightbearing as tolerated. Use assistive devise for stability. Encourage FULL knee extension and flexion 1 time EVERY time you get up and down and MULTIPLE times per day. No showering 72 hours after surgery. Begin showering postop day #3. Remove the dressing prior to shower and gently wash with warm water and antibacterial soap then pat dry and place abdominal pad (or plain gauze) and GARETT hose over top. This is to be done daily. Do not submerge for 3 weeks. If not showering daily after the initial 72 hours then you must clean incision and change dressing daily. Do not allow animals near the incision area. Keep clean. Follow anticoagulation recommendations as prescribed. Do not take any NSAIDs while on blood thinner. Do not take any additional narcotic pain medication other than what was prescribed on you surgery day without discussing with physician. Start physical therapy. If you are not currently scheduled for physical therapy or you are unsure of appointment time please call office [facility] to arrange. Call Dr. Khan with any concerns. Allergies/Adverse Reactions: Allergies No Known Allergies Allergy (Verified 12/04/20 09:32) Medications to take at Discharge lithium carbonate 300 mg capsule 600 mg PO QHS cap 12/30/17 meloxicam 15 mg tablet 15 mg PO DAILY 30 Days #30 tab 03/22/19 vitamin#30 30 mg iron-10 mg iron-folic acid 1 mg-omg3 capsule 1 cap PO DAILY cap 09/07/19 sertraline 100 mg tablet 100 mg PO QDAY #30 tab 09/07/19 hydrochlorothiazide 12.5 mg tablet 25 mg PO DAILY 12/21/19 metoprolol succinate 100 mg tablet,extended release 24 hr 100 mg PO QHS 12/21/19 oxybutynin chloride 10 mg tablet,extended release 24 hr 10 mg PO QHS 12/21/19 Acetaminophen [Tylenol Extra Strength] 1,000 mg PO Q6H PRN #100 tab 12/04/20 Apixaban [Eliquis] 2.5 mg PO BID #30 tab 12/04/20 Cephalexin [Keflex] 1,000 mg PO Q8 #4 cap 12/04/20 Ondansetron HCl [Zofran] 4 mg PO Q6H PRN PRN 5 Days #10 tab 12/04/20 Oxycodone [Oxyir] 5 mg PO Q4H PRN PRN #60 tablet 12/04/20 The following prescriptions were given: Apixaban [Eliquis] 2.5 mg PO BID #30 tab Transmission Status: Pending to [facility] Cephalexin [Keflex] 1,000 mg PO Q8 #4 cap Transmission Status: Pending to [facility] Oxycodone [Oxyir] 5 mg PO Q4H PRN PRN #60 tablet PRN Reason: Pain Score 6-10 Transmission Status: Sent to [facility] Acetaminophen [Tylenol Extra Strength] 1,000 mg PO Q6H PRN #100 tab Transmission Status: Pending to [facility] Ondansetron HCl [Zofran] 4 mg PO Q6H PRN PRN 5 Days #10 tab PRN Reason: Nausea Transmission Status: Pending to [facility] Primary Care Physician: David Álvarez MD [Primary Care Provider] - Test Results: Test results from this visit will be discussed in further detail at your follow-up appointment, if applicable. Please Follow Up With: Kedar Khan DO - 2 weeks
--- NOTE | 2020-12-04 13:11 | OP.PCM_ITS ---
Report of Operation Date of Procedure: 12/04/20 Description of Surgical Findings:: Preoperative diagnosis: Left knee DJD Postoperative diagnosis: Same Procedure: Left total knee arthroplasty CT guided Robotic Assisted Implant: Myke triathlon press fit femoral component size 3, press-fit tibial baseplate size 4, press fit asymmetric patella size 32, polyethylene X3 size 9 CS Anesthesia: Spinal with adductor canal block Tourniquet time: 12 minutes at 300 mmHg Complications: None Condition: Stable to PACU Estimated blood loss: 200 cc Indication for procedure: This is a 89 with long standing degenerative joint disease of the knee who has failed conservative treatment and wished to proceed with elective total knee arthroplasty. Risk benefits and alternatives were reviewed including; risk of bleeding, infection, nerve artery and tissue damage, continued pain, postoperative stiffness, venous thromboembolism, need for postoperative rehabilitation, mechanical feel to the knee, and expected postoperative course. The operative CT and templating was performed with component sizing Procedure: The patient was met in the preoperative holding area. The operative extremity was identified by both patient and physician and was marked. Patient was met by anesthesia. An adductor canal block was placed by anesthesia postoperatively the patient was brought back to the operating room on a wheeled cart and transferred to the operating table in the supine position. Anesthesia was started. A well-padded tourniquet was placed on the operative extremity. The patient was prepped and draped in the usual sterile fashion. A timeout was called to ensure the proper patient procedure and extremity were being contemplated. An Esmarch was used to exsanguinate the extremity. The tourniquet was inflated. A 10 blade scalpel was used to make a midline incision down through the skin and subcutaneous tissue. Skin retractors placed. Bovie was used to perform meticulous hemostasis. full-thickness flaps were elevated medial and lateral along the joint capsule. A deep blade scalpel was used to perform a medial parapatellar arthrotomy. The knee was brought to full extension. A Bovie was used to release the soft tissues off the most proximal aspect of the medial tibial plateau, a three-quarter inch curved osteotome was also used for this process. The infrapatellar fat pad was excised. The superior fat pad was excised partially anteriorolateraly and portion the anterioromedial pad was elevated from the femur. At this point our intra- articular femoral array was placed of a 45 degree angle proximal and posterior to the medial epicondyle. Our tibial array was placed greater than 1 hands kellee ath below the incision at a 20 degree angle stab incisions were used for this case were attached and checked with the robotic software. Tourniquet was let down. At this point registration hatch were taken throughout the knee as well as checkpoints placed in the femur and tibia once the knee was registered then tensioned the medial and lateral ligaments in extension and 90 degrees of flexion. We then used these numbers to adjust our components within parameters to balance the knee in both flexion and extension once this was done on our monitor we then proceeded with using the robotic arm to make our tibial plateau cut and anterior posterior and chamfer cuts and distal on the femur we then trialed and achieved the desired plan with a well-balanced knee. Lug holes were drilled in the femur the tibia preparation was completed with a fin punch and the patella was prepared by first using a caliper to ensure sufficient bone stock and a patellar reamer to remove the desired amount of bone locals were drilled for an asymmetric poly-. We then brought the knee through range of motion with excellent patellar tracking. We thoroughly irrigated the knee with a trial components were removed a posterior capsular injection with her standard cocktail was performed the aqua Mantis was also used to aid in hemostasis. Betadine rinse was allowed to sit and washed out components were press-fit into place. Aricept rinse was then used followed by several more rate liters of irrigation after it was allowed to sit. Joint capsule was closed with #1 Ethibond [id number] followed by Vicryl in the subcutaneous tissues staple in the skin arrays and checkpoints were removed prior to closure all counts were correct stab incisions were closed with a stable standard dressing in the form of Mepilex for the main incision Xeroform 4 x 4 and Tegaderm over pin site holes. Thigh-high GARETT hose applied over top of dressing. Patient tolerated the procedure well and was directed to PACU in stable condition no intraoperative complications
--- NOTE | 2020-12-04 13:30 | RAD_ITS ---
STUDY: X-RAY - LEFT KNEE REASON FOR EXAM: Female, 50 years old. POST OP LEFT KNEE TECHNIQUE: 2 view(s) of the knee. COMPARISON: None. FINDINGS: Normal visualized distal femur. Normal visualized proximal tibia and fibula. Normal proximal tibiofibular articulation. The patient is status post total knee replacement. There is good alignment. Postoperative soft tissue changes. RAD/Knee 1 or 2 Views IMPRESSION: Status post total knee replacement. There is good alignment. Postoperative soft tissue changes. Electronically Signed: Eugene Castaneda MD at 14:09 EST , Service support ,
[2020-12-04] MEDS: Ketorolac 30 MG/ML Syringe 15 MG IV (14:18)
[2020-12-04] MEDS: Lactated Ringers 1,000 ML 125 ML IV (14:38)
[2020-12-04] MEDS: Cefazolin 1 GM/50 ML BAG IV (14:52)
[2020-12-04] MEDS: oxyCODONE 5 MG Tablet PO (15:22)
== END 2020-12-04 18:15 | disposition home or self-care (01) ==
LOC: SDC 08:46 → AC 08:46
PROVIDERS: Anesthesiology; PCP Family Medicine; Referring Provider Orthopaedic Surgery; Visit Provider Orthopaedic Surgery
PROC: 0SRD0JZ Replacement of Left Knee Joint with Synthetic Substitute, Open Approach (ICD-10-PCS; CPT 27447; principal; 2020-12-04 10:30)
DX: M17.0 Bilateral primary osteoarthritis of knee (principal); Z79.1 Long term (current) use of non-steroidal anti-inflammatories (NSAID); I10 Essential (primary) hypertension
CPT/HCPCS: 01992; 27447; 64447; 36415; 73560; 80048; 82962; 82985; 83735; 85025; 85610; 85730; 86850; 86900; 86901; 87077; 87081; 93005; 97162; C1776; J7120; J0702; J3490

== ENCOUNTER 2021-02-18 10:00 | Outpatient (RCR) | payer OTHER, SELFPAY ==
[2020-11-14 10:05] VITALS: BMI 36.2
--- NOTE | 2020-11-20 11:59 | HP.PTEVAL_ITS ---
Patient's Visit Information BAY AVERY is a 50 year old F referred to Physical Therapy by Dr. Kedar Khan DO with a diagnosis of OA of L knee (prehab for TUA 12-04-2020). Date of Evaluation: 11/20/20 Physical Therapist: GINNY Reynolds - Visit Plan Frequency: 2x /Week Duration: 2 Weeks Plan: 2X/ week for 2 weeks for L knee AROM, L Quad and hip flexor stretngth, stairs, gait training in preparation for TUA on the L on 12-04-2020. HEP: QS, GS, SAQ, heel slides in supine and sitting, - Subjective Pt will be having a L TUA on 12-04-2020 and then 2-3 months later she will have her R one done as well. wanted her to do therapy before PT cause her L knee is hard to bend and she can hardly raise her L knee/leg. Pt has been using the cane for about a year. Her knees have been bothering her for over a year at least. She started corizone shots for over a year with minimal help. She has stairs at home to bed and bath and downstairs as well. She has 1 hand rails. She has no steps into the house throught the garage. She is not driving currently. Pt reports that her L knee can still give out on her at times. She does a lot of things at home but sits in a chair to helpw tih dishes etc. - Pain L knee pain Pain Intensity (Out of 10): 2 Pain Intensity Range: 10 R knee pain Pain Intensity (Out of 10): 1 - Objective Gait: walks with a straight cane in R hand with L hip in abd and knee extension with increase varus of the L knee. Almost no knee flexion with gait present. LE MMT: Hip flexion on the R 3+/5 and hip flexion on the L 3-/5, Knee ext on the R 4-/5 and L 2-/5,. knee flexion on the R 4-/5 and L 3-/5,. DF B 4/5 in sitting,. L knee flexion AROM 70 degrees and PROM L 82 degrees. R knee flexion AROM 101 degrees. L knee extension 0 degrees. Pt is not able to do a full SAQ on the L in supine (not able to get full extension). TUG 21.68. L patella girth 78.9 and L 6 suprapatella 48.5. WOMAC 61/96 - Goals Goal 1:: I HEP Goal Time Frame: 4-6 Weeks Goal 2:: Increase L knee AROM 0-75 degree. Goal Time Frame: 4-6 Weeks Goal 3:: Pt to demonstrate good knowledge of HEP prior to surgery Goal Time Frame: 4-6 Weeks Goal 4:: Pt to be able to ascend a 6 inch step to be able to go up stairs at home Goal Time Frame: 4-6 Weeks - Rehabilitation Potential Rehabilitation Potential: Good - Anticipated Interventions Patient/Client Instruction: Educate patient on: Condition, Plan of Care For the Purpose of:: To decrease pain, To increase ROM, To improve nutrient delivery to tissue, To increase oxygenation perfusion, To improve muscle performance and motor function, To improve ability to perform ADL's, To increase tolerance to activity/condition/position, To improve performance and independence with ADL's, To decrease level of supervision to perform tasks, To improve gait and locomotor functions, To improve health of tissue, To decrease soft tissue restriction, To increase flexibility/ROM, To improve endurance, To improve balance, To improve safety with gait Therapeutic Exercise to Include: Strength training, Postural training, Flexibilty training, Gait and locomotor training, Passive ROM, Active ROM For the Purpose of:: To decrease pain, To decrease swelling/inflammation, To increase ROM, To improve nutrient delivery to tissue, To increase oxygenation perfusion, To improve muscle performance and motor function, To improve ability to perform ADL's, To increase tolerance to activity/condition/position, To improve performance and independence with ADL's, To decrease level of supervis ion to perform tasks, To improve ability of physical actions for home/community/work/leisure, To improve gait and locomotor functions, To improve health of tissue, To decrease soft tissue restriction, To increase flexibility/ROM, To improve endurance, To improve safety with gait Functional Training to Include: Gait training For the Purpose of:: To improve safety with gait Thank you for the opportunity to evaluate your patient. For Medicare and Medicare HMO plans, please review the plan of care and approve it. It will need to be FAXED BACK to us at [phone] for Medicare purposes. For Medicare only, by signing this I certify the plan of care. Please let me know if there are questions or concerns regarding this plan of care. Physician Signature: Date:
--- NOTE | 2020-11-30 12:13 | HP.PTREVAL ---
Dr. Kedar hKan, DO, It has been my pleasure to treat BAY AVERY over the last 4 visits for OA of L knee (prehab for TUA 12-04-2020). Please see the progress note below for an update on the physical therapy plan of care! Subjective: Pt is ready for her surgery. She looked over her TKR book inside her folder. Objective/Function: L knee AROM 0-80 degrees. Steps ups: up with the L and down with the L with // bars due to increase pain Plan Plan: Pt will be having her TKR surgery on 12-04-2020 and will be re-evaled for change of status and new goals and new measurements and then exercises by TKR protocol for home by Kenisha Foreman PT. Pt is already scheduled out for 4 weeks to continue her care. Measurements have already been taken pre-op and put on share file. Goals Goal 1:: I HEP Goal Time Frame: 4-6 Weeks Goal Progress: Goal Met Goal 2:: Increase L knee AROM 0-75 degree. Goal Time Frame: 4-6 Weeks Goal Progress: Goal Met Goal 3:: Pt to demonstrate good knowledge of HEP prior to surgery Goal Time Frame: 4-6 Weeks Goal Progress: Goal Met Goal 4:: Pt to be able to ascend a 6 inch step to be able to go up stairs at home Goal Time Frame: 4-6 Weeks Goal Progress: Goal Met Anticipated Interventions Patient/Client Instruction: Educate patient on: Condition, Plan of Care For the Purpose of:: To decrease pain, To increase ROM, To improve nutrient delivery to tissue, To increase oxygenation perfusion, To improve muscle performance and motor function, To improve ability to perform ADL's, To increase tolerance to activity/condition/position, To improve performance and independence with ADL's, To decrease level of supervision to perform tasks, To improve gait and locomotor functions, To improve health of tissue, To decrease soft tissue restriction, To increase flexibility/ROM, To improve endurance, To improve balance, To improve safety with gait Therapeutic Exercise to Include: Strength training, Postural training, Flexibilty training, Gait and locomotor training, Passive ROM, Active ROM For the Purpose of:: To decrease pain, To decrease swelling/inflammation, To increase ROM, To improve nutrient delivery to tissue, To increase oxygenation perfusion, To improve muscle performance and motor function, To improve ability to perform ADL's, To increase tolerance to activity/condition/position, To improve performance and independence with ADL's, To decrease level of supervision to perform tasks, To improve ability of physical actions for home/community/work/leisure, To improve gait and locomotor functions, To improve health of tissue, To decrease soft tissue restriction, To increase flexibility/ROM, To improve endurance, To improve safety with gait Functional Training to Include: Gait training For the Purpose of:: To improve safety with gait Please do not hesitate to contact me at [phone] by phone or if you have questions or concerns regarding this new plan of care! Sincerely, Gunjan Gamez, MPT
--- NOTE | 2020-12-07 11:41 | HP.PTREVAL ---
Dr. Kedar Khan, DO, It has been my pleasure to treat BAY AVERY over the last 5 visits for OA of L knee (prehab for TUA 12-04-2020). Please see the progress note below for an update on the physical therapy plan of care! Subjective: Pt had a HERI L TKR on 12-04-2020. She is using a rolling walker. She has not been doing any exercises at home. She reports that the drugs have been making her sleepy. Nurse said she should not do stairs for a week. She goes back to Dr Cohen on December 19. She has rodrigo in her knee. She has help with putting her stockings on. Objective/Function: Pt admits to taking 1-2 oxy every 4 hours and this moring it was 2 and reported not being able to think well. She could not count to 10. Her dad drove her to therapy. Gait: walks with a rolling walker with WBOS (wider than the width of the walker) and no knee flexion with gait and decreased heel to toe gait pattern and flexed trunk with gait and decreased knee flexion on the L with gait. L knee AROM: 0-74 degrees. L SLR: X 10 AA. Supine to sit using mod A to get to a seated position for L leg and shoulders Plan Plan: 3X/ week for 4 weeks for L knee AROM, L knee and hip strengthening, gait training (knee flexion with gait and heel to toe gait pattern), functional activites, stair negotiation, gait training progression as able. Goals Goal 1:: I HEP Goal Time Frame: 4-6 Weeks Goal Progress: Goal Met Goal 2:: Increase L knee AROM 0-120 degree. Goal Time Frame: 4-6 Weeks Goal Progress: Goal Met Goal 3:: Pt to be able to walk with normal gait pattern without AD at DC Goal Time Frame: 4-6 Weeks Goal Progress: Goal Met Goal 4:: Increase L hip and knee strength to 4/5 Goal Time Frame: 4-6 Weeks Goal Progress: Goal Met Goal 5:: Be able to get out of a chair on first attempt without using her UE to get out of the chair Goal Time Frame: 4-6 Weeks Goal 6:: Be able to lift L leg to get in and out of bed on own Goal Time Frame: 4-6 Weeks Anticipated Interventions Patient/Client Instruction: Educate patient on: Condition, Plan of Care For the Purpose of:: To decrease pain, To increase ROM, To improve nutrient delivery to tissue, To increase oxygenation perfusion, To improve muscle performance and motor function, To improve ability to perform ADL's, To increase tolerance to activity/condition/position, To improve performance and independence with ADL's, To decrease level of supervision to perform tasks, To improve gait and locomotor functions, To improve health of tissue, To decrease soft tissue restriction, To increase flexibility/ROM, To improve endurance, To improve balance, To improve safety with gait Therapeutic Exercise to Include: Strength training, Postural training, Flexibilty training, Gait and locomotor training, Passive ROM, Active ROM For the Purpose of:: To decrease pain, To decrease swelling/inflammation, To increase ROM, To improve nutrient delivery to tissue, To increase oxygenation perfusion, To improve muscle performance and motor function, To improve ability to perform ADL's, To increase tolerance to activity/condition/position, To improve performance and independence with ADL's, To decrease level of supervision to perform tasks, To improve ability of physical actions for home/community/work/leisure, To improve gait and locomotor functions, To improve health of tissue, To decrease soft tissue restriction, To increase flexibility/ROM, To improve endurance, To improve safety with gait Functional Training to Include: Gait training For the Purpose of:: To improve safety with gait Please do not hesitate to contact me at [phone] by phone or if you have questions or concerns regarding this new plan of care! Sincerely, GINNY Reynolds
--- NOTE | 2021-02-18 15:39 | HP.PTDCSUM_ITS ---
It has been my pleasure to treat BAY AVERY referred by Dr. Kedar Khan DO, with the diagnosis of OA of L knee (prehab for TKA 12-04-2020) for a total of 32 visit(s). Discharge Date: 02/18/21 Please see the following information for a summary of their discharge status. Subjective: Pt. arrives today with reports of going to have her R knee replacement later this month. Pt. reports 1/10 pain in B knees today. Pt. reports overall doing well. Pt. reports being 90% better overall in her L knee. She is still walking with a cane, but at home is not using it. L knee pain Pain Intensity (Out of 10): 1 R knee pain Pain Intensity (Out of 10): 1 % Improvement: 90 Objective/Function: ROM: L knee 0-0-113deg active, 0-0-115deg passive. MMT: 5- /5 throughout LLE. GAIT: Pt. ambulates with single point cane. She has increased knee flexion with VCing, but tends to have reduced L knee flexion without. Pt. is also able to ambulate without AD, but does have increased NOLAN and increased lateral hip sway. STAIRS: Pt. is able to negotiate with 2 HR with reciprocal pattern. Pt. has slight lateral lean to R side during L LE loaded descending. Improved with VCing. TU.8sec without AD. Normal girth noted at mid patella bilaterally Goal 1:: I HEP Goal Progress: Goal Met Goal 2:: Increase L knee AROM 0-120 degree. Goal Progress: Goal Met Goal 3:: Pt to be able to walk with normal gait pattern without AD at DC Goal Progress: Goal Met Goal 4:: Increase L hip and knee strength to 4/5 Goal Progress: Goal Met Goal 5:: Be able to get out of a chair on first attempt without using her UE to get out of the chair Goal Progress: Goal Met Goal 6:: Be able to lift L leg to get in and out of bed on own Goal Progress: Goal Met Plan: Pt. has a limited number of visits with PT/OT per year and with her upcoming surgery I would like her to save the remaining visits for after surgery. Pt. has imporved ROM and strength, but needs to work on a bit more flexion and progress a walking program. Pt. understands this is on board with current plan. I gave her an exercise program to work on and talked about going to local gym to increase ROM, but reports she would have to check with first. Pt. to work on her exercises and call me with any questions about progressions. Discharge Comments: Pt. was treated in PT for her L TKA. Pt. is progressing well, but slowly. Pt. would still benefit from continued to exercises to work on progressing her ROM a few more degrees and work on her gait progression. She has a solid exercise program that she has been consistent with. Pt. has a limit with her PT visits and she has an upcoming TKA on her R and I would like her to conserve some of these visits for post OP. I did give her exercise for both legs for ROM and strengthening. Pt. consents. Pt. will be DC from PT at this point in time. If there are questions or concerns regarding this patient's physical therapy, please feel free to call me at [phone]. Thank you for the referral of this patient. Sincerely, Eitan Lemus DPT
== END 2021-02-18 19:00 | disposition home or self-care (01) ==
LOC: PT 10:00
PROVIDERS: PCP Family Medicine; Referring Provider Orthopaedic Surgery; Visit Provider Orthopaedic Surgery
DX: M17.12 Unilateral primary osteoarthritis, left knee (principal)
CPT/HCPCS: 97110; 97140; 97161; 97162; 97164; 97530

== ENCOUNTER → 2021-03-07 07:42 | Outpatient (CLI) | payer OTHER, SELFPAY ==
[2021-02-15 10:02] VITALS: BMI 38.0
--- NOTE | 2021-03-07 07:44 | CT_ITS ---
STUDY: CT RIGHT LOWER EXTREMITY WITHOUT CONTRAST REASON FOR EXAM: Right knee osteoarthritis, surgical planning. TECHNIQUE: Transaxial CT imaging of the lower extremity was performed. Coronal and sagittal images were reformatted. Individualized dose optimization techniques were used for this CT. COMPARISON: Radiographs 02/15/2021. FINDINGS: Knee: There are marginal osteophytes and severe joint space narrowing of the medial femorotibial compartment (coronal reconstruction 35). There are marginal osteophytes with preservation of joint space of the lateral femorotibial compartment. There are marginal osteophytes and mild to moderate joint space narrowing of the patellofemoral compartment (sagittal reconstruction 21). Normal proximal tibiofibular articulation. There is a joint effusion. The quadriceps tendon is grossly normal. The patellar tendon is grossly normal. Normal Hoffa''s fat pad. The soft tissues are unremarkable. Hip: Unremarkable right hip joint. Ankle: Normal tibiotalar, posterior subtalar and calcaneocuboid articulations. There is an ossicle at the dorsal aspect of the talonavicular articulation. There is a small posterior calcaneal enthesophyte (sagittal reconstruction 28). CT/Extremity Lower without Contra IMPRESSION: Right knee osteoarthritis. Electronically Signed: Cruz Arcos MD at 8:32 EDT Tel , Service support ,
== END ==
PROVIDERS: PCP Family Medicine; Referring Provider Orthopaedic Surgery; Visit Provider Orthopaedic Surgery
DX: M17.0 Bilateral primary osteoarthritis of knee (principal)
CPT/HCPCS: 73700

== ENCOUNTER 2021-04-09 05:03 | Day surgery (SDC) | payer OTHER, SELFPAY ==
[2021-02-15 10:02] VITALS: BMI 38.0
--- NOTE | 2021-03-29 09:00 | EKG12_ITS ---
Test Reason : PREOP Blood Pressure : / mmHG Vent. Rate : 060 BPM Atrial Rate : 060 BPM P-R Int : 180 ms QRS Dur : 086 ms QT Int : 404 ms P-R-T Axes : 036 -07 026 degrees QTc Int : 404 ms Normal sinus rhythm Left ventricular hypertrophy Abnormal ECG Confirmed by CHAYO MEYER, GRAY ([id number]), editor index DEAN CARTWRIGHT ([id number]) on 04/01/2021 1:44:59 PM Referred By: Kedar Khan Confirmed By:GRAY DOMINGO MD
[2021-03-29 09:38] LABS: Absolute Lymphocyte Count 1.58 X10^3/uL (0.83-4.51); Absolute Neutrophil Count 2.4 X10^3/uL (2.0-7.7); Basophil# 0.05 X10^3/uL; Basophil% 1.1 % (0-1); Eosinophil# 0.24 X10^3/uL; Eosinophils% 5.1 % (0-5); Hematocrit 38.7 % (37-47); Hemoglobin 12.3 g/dL (12.0-15.0); Lymphocyte # 1.58 X10^3/ul (0.83-4.51); Lymphocyte % 33.6 % (19-41); Mean Corp Hgb Conc 31.8 g/dL (32-36); Mean Corpuscular Hgb 27.8 pg (27.0-32.0); Mean Corpuscular Volume 87.6 fL (81-99); Mean Platelet Vol. 8.8 fl (6.2-12.0); Monocyte# 0.47 X10^3/uL; NRBC Flagged by Analyzer 0 % (0-5); Neutrophil # 2.36 X10^3/uL (2.7-7.7); Neutrophil % 50.2 % (47-70); Platelet Count 321 K/mm3 (150-450); RBC Distribution Width CV 13.6 % (11.6-14.6); RBC Distribution Width SD 43.8 fl (35.1-43.9); Red Blood Count 4.42 M/mm3 (4.2-5.4); White Blood Count 4.7 K/mm3 (4.4-11.0)
[2021-03-29 09:48] VITALS: BMI 38.0
[2021-03-29 09:50] LABS: Prothrombin Time (Protime)PT. 12.5 SECONDS (11.7-14.9)
[2021-03-29 09:51] LABS: Partial Thromboplast Time 28.2 Seconds (24.1-36.2)
[2021-03-29 10:04] LABS: Anion Gap 5 (5-15); BUN 19 mg/dL (7-18); BUN/Creat Ratio 33.9 RATIO (10-20); Calcium,Total 10.1 mg/dL (8.5-10.1); Chloride 103 mmol/L (98-107); Creatinine, Serum 0.56 mg/dL (0.55-1.02); EST Glomerular Filtration Rate 120 mL/min (>60); Est Glom Filt Rate - Afr Amer 145 mL/min (>60); Glucose 91 mg/dL (74-106); Sodium Level 138 mmol/L (136-145)
[2021-03-29 10:10] LABS: Magnesium 2.2 mg/dL (1.6-2.6)
[2021-03-30 10:05] LABS: Fructosamine 231 umol/L (0-285)
[2021-04-09] VITALS (14 sets, daily range): BP systolic 90–144; BP diastolic 54–87; PULSE 44–75; RESP 16–18; TEMP 36.2–37.1; O2SAT 97–100; BMI 36.8
[2021-04-09] MEDS: Lactated Ringers 1,000 ML 100 ML IV (06:14)
[2021-04-09] MEDS: Scopolamine 1mg/72hr Patch 1 PATCH TD (06:15)
[2021-04-09] MEDS: Celecoxib 200 MG Capsule 400 MG PO (06:15)
[2021-04-09] MEDS: Gabapentin 600 MG Tablet PO (06:15)
[2021-04-09] MEDS: Acetaminophen 500 MG Tablet 1000 MG PO ×2 (06:16→14:43)
--- NOTE | 2021-04-09 07:30 | KNEE_PTH ---
PATIENT: BAY AVERY [place]: [facility] [place] U#:[id number] AGE/SX: 51/F ROOM: RE04/09/[address]: Dr. Kedar Khan DO : 1970 BED: DIS: 04/09/2021 SPEC #: [id number] RECD: 04/09/21 11:03 STATUS: ABHAY JOSE LUIS #: [id number] DANUTA: 04/09/21 07:[address]: Kedar Khan DEPT: SURGICAL PATHOLOGY RECD BY: Delicia Fan ENTERED: 04/09/21 11:38 SP TYPE: TOTAL KNEE OTHR DR: Dr. David Álvarez MD Tissues: Knee, NOS Procedures: Decalcification bone/plaque Surgery Specimen Level IV HEADER OPERATION: ERAS, total knee replacement robotic arm assist PRE-OP DIAGNOSIS: Osteoarthritis of right knee TISSUE SUBMITTED: Right knee bone MICROSCOPIC DIAGNOSIS Right knee bone, total knee replacement/resection: Pieces of bone with degenerative osteoarthritic changes. Fragments of fibrocartilaginous tissue and mildly reactive synovial tissue. MONICA:rodney 04/12/2021 MICROSCOPIC DESCRIPTION Slides are reviewed. GROSS DESCRIPTION Received in fixative is one container labeled with the patient's name and designated right knee bone. The specimen consists of multiple fragments of leyva-yellow bone measuring in aggregate 10 x 10 x 3 cm. Also in the specimen container is one fragment of cartilaginous tissue measuring 8 x 2 x 1 cm. A number of bony fragments contain articular surfaces consistent with tibial plateau and femoral condyle and displaying prominent osteophyte formation, eburnation, and bone erosion. [employer] Supervisor sections are submitted in two cassettes as follows: 1 - cartilaginous tissue, 2 - bone after decalcification. / MONICA:rodney 04/09/21 TC:5 [facility]: [id number], [id number]
[2021-04-09] MEDS: Cefazolin 2 GM in 0.9% Normal Saline 100 ML IV (07:31)
--- NOTE | 2021-04-09 07:38 | HP.PCM_ITS ---
History and Physical Date of Admission: 04/09/21 Date of Service: 03/29/21 MR#:[id number]:[id number]: BAY AVERY [facility] #:[id number]:1970 Provider: ANDREW Fulton/Sex: 50/F Location:[facility] [place].BOSStatus:Signed Intake Vital Signs 03/29/21 09:48 BMI 38.0 Intake Visit Reasons: right knee Chief Complaint: Right Knee Allergies No Known Allergies Allergy (Verified 03/26/21 15:08) PFSH Medical History Abnormal Pap smear of cervix Ambulates with cane Anemia Anxiety Arthritis Back pain Bipolar disorder Bipolar disorder Carpal tunnel syndrome Fatigue History of pain when walking Hypertension Knee pain Migraine headache Non-smoker Surgical History delivery delivered History of carpal tunnel surgery Hx of colonoscopy Hx of total knee replacement (~12/04/20) lip surgery Family History Mother Ovarian cancer Grandfather Myocardial infarction Grandmother Colon cancer Social History Smoking Status: Never smoker alcohol intake: never substance use type: does not use caffeine: No what type of physical activity do you participate in: none seatbelt use: always do you feel safe at home: Yes additional social history: Ruma Mcgill 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 BAY AVERY is a 50 year old F here today for a right knee iovera injection. Denies any changes in her medical history. Ortho Exam Right Knee Knee ROM: No ROM-Flexion 0-140 Examination: Yes Med jt line tenderness and Yes Pain with flexion KNEE: No erythema, warmth, skin changes, or other signs of inflammation or infection. She has no calf tenderness and a negative Homans today. Normal s ensation throughout. Office Procedures Iovera Procedure Details:: Preoperative diagnosis : Primary OA Postoperative diagnosis: Same Procedure: Cryotherapy with Iovera device to anterior femoral cutaneous nerve and 2 branches of the infrapatellar saphenous nerve III nerves in total Description of procedure: Patient was brought back to the procedure room the operative extremity was identified by both patient and physician. The PIP flexion crease was measured to the midpoint of the patella and this distance was divided in 3 resulting in 10 cm location proximal to the midpoint of the patella. This line was extended medial and lateral to the extent of the edges of the patella. This was our treatment line for the anterior femoral cutaneous nerve. A second treatment line was made 5 cm medial to the inferior pole of the patella and 5 cm distally. The leg was prepped with alcohol and Betadine. Lidocaine with epi was used along the treatment lines. Using the Iovera device treatment lines were treated with 1 minute cycles. Reproduction of paresthesias was monitored in the area of nerve distribution. Once all 3 nerves were treated across the 2 treatment lines patient was cleaned and a light dressing with 4 x 4 and Khris wrap was applied. Patient tolerated the procedure without complication. Supplemental Info Obtained consent in office today. All questions answered. Coding Level of Care Code Attention Flaker Tender Diagnoses Osteoarthritis of right knee M17.11 Comment CPT for Iovera treatment Assessment and Plan Assessment and Plan (1) Osteoarthritis of right knee: Status: Acute Plan - ANDREW Zavala: Patient presents the office today for a preop operative Iovera treatment of the right knee. Procedure was discussed with patient and all of her questions were answered today consent was signed in office today. Procedure was then performed under normal sterile fashion in a normal stepwise approach (see procedural note). Patient tolerated procedure with minimal discomfort. No complications observed. Patient ice and should continue with the Khris wrap for 24 hours. We discussed that bruising is common around the area. I would wait 24 hours to shower. Monitor notify of any erythema, warmth, increased pain, discharge, swelling, or any other signs or symptoms. This note was generated with [employer] dictation software. It may contain incorrect words, spelling, and punctuation that were not noted in checking the note before signing. Plan Details Other Orders: Orders: Iovera 03/29/21 M25.569 04/08/21 1259<Electronically signed by John MORALES>Date John Colvin Signature:Date (if applicable) CC: ~I have re-examined the patient. There are no clinical changes since date of exam
[2021-04-09 08:38] LABS: Bedside Glucose 102 mg/dL (70-110)
[2021-04-09] MEDS: Betamethasone/Betamethasone 30 MG/5 ML Vial (09:00)
[2021-04-09] MEDS: 0.9% Normal Saline (Pres. free 10 ML Vial (09:00)
[2021-04-09] MEDS: Bupivacaine Mpf 0.5% 30 ML VIAL (09:00)
[2021-04-09] MEDS: Epinephrine (1 mg/ml) 1 MG/ML VIAL (09:00)
[2021-04-09] MEDS: Lactated Ringers 1,000 ML 125 ML IV (09:31)
--- NOTE | 2021-04-09 09:53 | PCM.OPRPT ---
Report of Operation Surgery/Procedure Performed:: Report of Operation Surgery/Procedure Performed:: Preoperative diagnosis: Right knee DJD Postoperative diagnosis: Same Procedure: Right total knee arthroplasty CT guided Robotic Assisted Implant: [place] triathlon press fit femoral component size 3, press-fit tibial baseplate size 4, press fit asymmetric patella size 32, polyethylene X3 size 9 CS Anesthesia: Spinal with adductor canal block Tourniquet time: 35 minutes at 300 mmHg [employer] Member: John MORALES. Complications: None Condition: Stable to PACU Estimated blood loss: 150 cc Indication for procedure: This is a 63-year-old female with long standing degenerative joint disease of the knee who has failed conservative treatment and wished to proceed with elective total knee arthroplasty. Risk benefits and alternatives were reviewed including; risk of bleeding, infection, nerve artery and tissue damage, continued pain, postoperative stiffness, venous thromboembolism, need for postoperative rehabilitation, mechanical feel to the knee, and expected postoperative course. The operative CT and templating was performed with component sizing Procedure: The patient was met in the preoperative holding area. The operative extremity was identified by both patient and physician and was marked. Patient was met by anesthesia. An adductor canal block was placed by anesthesia postoperatively the patient was brought back to the operating room on a wheeled cart and transferred to the operating table in the supine position. Anesthesia was started. A well-padded tourniquet was placed on the operative extremity. The patient was prepped and draped in the usual sterile fashion. A timeout was called to ensure the proper patient procedure and extremity were being contemplated. An Esmarch was used to exsanguinate the extremity. The tourniquet was inflated. A 10 blade scalpel was used to make a midline incision down through the skin and subcutaneous tissue. Skin retractors placed. Bovie was used to perform meticulous hemostasis. full-thickness flaps were elevated medial and lateral along the joint capsule. A deep blade scalpel was used to perform a medial parapatellar arthrotomy. The knee was brought to full extension. A Bovie was used to release the soft tissues off the most proximal aspect of the medial tibial plateau, a three-quarter inch curved osteotome was also used for this process. The infrapatellar fat pad was excised. The superior fat pad was excised partially anteriorolateraly and portion the anterioromedial pad was elevated from the femur. At this point our intra-articular femoral array was placed of a 45 degree angle proximal and posterior to the medial epicondyle. Our tibial array was placed greater than 1 hands breath below the incision at a 20 degree angle stab incisions were used for this case were attached and checked with the robotic software. Tourniquet was let down. At this point registration hatch were taken throughout the knee as well as checkpoints placed in the femur and tibia once the knee was registered then tensioned the medial and lateral ligaments in extension and 90 degrees of flexion. We then used these numbers to adjust our components within parameters to balance the knee in both flexion and extension once this was done on our monitor we then proceeded with using the robotic arm to make our tibial plateau cut and anterior posterior and chamfer cuts and distal on the femur we then trialed and achieved the desired plan with a well-balanced knee. Lug holes were drilled in the femur the tibia preparation was completed with a fin punch and the patella was prepared by first using a caliper to ensure sufficient bone stock and a patellar reamer to remove the desired amount of bone locals were drilled for an asymmetric poly-. We then brought the knee through range of motion with excellent patellar tracking. We thoroughly irrigated the knee with a trial components were removed a posterior capsular injection with her standard cocktail was performed the aqua Mantis was also used to aid in hemostasis. Betadine rinse was allowed to sit and washed out components were press-fit into place. Aricept rinse was then used followed by several more rate liters of irrigation after it was allowed to sit. Joint capsule was closed with #1 Ethibond [id number] followed by Vicryl in the subcutaneous tissues staple in the skin arrays and checkpoints were removed prior to closure all counts were correct stab incisions were closed with a stable standard dressing in the form of Mepilex for the main incision Xeroform 4 x 4 and Tegaderm over pin site holes. Thigh-high GARETT hose applied over top of dressing. Patient tolerated the procedure well and was directed to PACU in stable condition no intraoperative complications
--- NOTE | 2021-04-09 10:02 | EX.PCM.DISCH ---
Discharge Instructions Diet Discharge Diet: No restrictions Activity Weight Bearing Status: Weight bearing as tolerated Dressing / Incision Call your doctor if you observe: Shortness of breath and Chest pain Additional Dressing/Incision Instructions:: Ice and elevate one week while not ambulating. Ambulation is encouraged. Weightbearing as tolerated. Use assistive devise for stability. Encourage FULL knee extension and flexion 1 time EVERY time you get up and down and MULTIPLE times per day. No showering 72 hours after surgery. Begin showering postop day #3. Remove the dressing prior to shower and gently wash with warm water and antibacterial soap then pat dry and place abdominal pad (or plain gauze) and GARETT hose over top. This is to be done daily. Do not submerge for 3 weeks. If not showering daily after the initial 72 hours then you must clean incision and change dressing daily. Do not allow animals near the incision area. Keep clean. Follow anticoagulation recommendations as prescribed. Do not take any NSAIDs while on blood thinner. Do not take any additional narcotic pain medication other than what was prescribed on your surgery day without discussing with physician. Narcotic medication can be addictive. Do not drink alcohol while taking narcotics. Start physical therapy. If you are not currently scheduled for physical therapy or you are unsure of appointment time please call office [facility] to arrange. Call Dr. Khan with any concerns. Follow Up Care Please Follow Up With: Kedar Khan DO When: 2 weeks Test Results: Test results from this visit will be discussed in further detail at your follow-up appointment, if applicable. Discharge Plan Admission Attending Provider: Kedar Khan Primary Care Provider: David Álvarez Discharge Orders/Prescriptions Prescriptions: New oxycodone 5 mg Tablet 5 - 10 mg PO Q4H PRN PRN (Reason: Pain Score 4-10/10) 7 Days Qty: 60 RF: 0 ondansetron HCl [Zofran] 4 MG tablet 4 mg PO Q6H PRN PRN (Reason: Nausea) 5 Days Qty: 20 RF: 0 cephalexin [cephalexin] 500 MG capsule 1,000 mg PO Q8 Qty: 4 RF: 0 Eliquis 2.5 MG tablet 2.5 mg PO BID Qty: 30 RF: 0 Continued lithium carbonate 300 mg capsule 600 mg PO QHS RF: 0 vitamin#30 30 mg iron-10 mg iron-folic acid 1 mg-omg3 capsule 30 mg iron-10 mg iron-1 mg capsule 1 cap PO DAILY RF: 0 sertraline [Zoloft] 100 mg tablet 100 mg PO QDAY Qty: 30 RF: 12 hydrochlorothiazide 12.5 mg tablet 25 mg PO DAILY RF: 0 oxybutynin chloride 10 mg tablet extended release 24hr 10 mg PO QHS RF: 0 metoprolol succinate 100 mg tablet extended release 24 hr 100 mg PO QHS RF: 0 melatonin 5 mg capsule 5 mg PO QHS RF: 0 acetaminophen 500 MG tablet 1,000 mg PO Q6H PRN Qty: 100 RF: 0 Discontinued meloxicam 15 mg tablet 15 mg PO DAILY 30 Days Qty: 30 RF: 0 Referrals / Follow Up: David Álvarez MD [Primary Care Provider] - Disposition Disposition (needs filled in before D/C Order can be placed): Home, Self Care
--- NOTE | 2021-04-09 10:40 | RAD_ITS ---
STUDY: X-RAY - RIGHT KNEE REASON FOR EXAM: Female, 51 years old. post op in pacu -- in PACU TECHNIQUE: 2 view(s) of the knee. COMPARISON: Right knee x-ray dated FEBRUARY 15, 2021 FINDINGS: Newly placed tricompartmental hardware is present demonstrating good bony contact and alignment. The tibial stem is noncemented. Tract hatch are seen in the undersurface of the patella due to placement of a radiolucent prosthetic component. There are expected postoperative changes in the soft tissues and joint including gas, fluid, and swelling. Multiple overlying skin rodrigo are present. RAD/Knee 1 or 2 Views IMPRESSION: Status post total right knee arthroplasty Electronically Signed: Jose Antonio Sal MD at 23:56 EDT , Service support ,
[2021-04-09] MEDS: oxyCODONE 5 MG Tablet PO (12:44)
[2021-04-09] MEDS: Cefazolin 1 GM/50 ML BAG IV (12:44)
== END 2021-04-09 14:51 | disposition home or self-care (01) ==
LOC: SDC 05:04 → AC 05:12
PROVIDERS: Anesthesiology; PCP Family Medicine; Referring Provider Orthopaedic Surgery; Visit Provider Orthopaedic Surgery
PROC: 0SRC0JZ Replacement of Right Knee Joint with Synthetic Substitute, Open Approach (ICD-10-PCS; CPT 27447; principal; 2021-04-09 07:00)
DX: M17.11 Unilateral primary osteoarthritis, right knee (principal); F31.9 Bipolar disorder, unspecified; I10 Essential (primary) hypertension; I25.2 Old myocardial infarction; Z85.038 Personal history of other malignant neoplasm of large intestine; Z85.43 Personal history of malignant neoplasm of ovary; Z96.651 Presence of right artificial knee joint
CPT/HCPCS: 27447; 36415; 73560; 80048; 82962; 82985; 83735; 85025; 85610; 85730; 86850; 86900; 86901; 87077; 87081; 88305; 88311; 93005; 97162; C1776; J7120; J0702; J2405; J3490

== ENCOUNTER → 2021-05-02 09:51 | Outpatient (CLI) | payer OTHER, SELFPAY ==
[2021-04-26 10:01] VITALS: BMI 36.8
--- NOTE | 2021-05-02 09:53 | BI_ITS ---
MAMMOGRAPHY - BILATERAL SCREENING REASON FOR EXAM: Female, 51 years old. Routine annual screening examination. PERTINENT HISTORY: Non-contributory. TECHNIQUE: Digital bilateral breast isai (3D mammographic acquisition) in the CC and MLO projections. 2-D mediolateral oblique (MLO) and craniocaudad (CC) views of both breasts were obtained. CAD: Full Field Digital Mammography with Computer Added Detection was performed. COMPARISON: Comparison is made with prior study dated 04/13/2020 and 04/11/2019. FINDINGS: Breast Composition: The breasts are heterogeneously dense, which may obscure small masses. There are no dominant masses or suspicious calcifications. No other significant abnormalities are identified. There has been no significant change since the prior study. BI/SCRN MAMM (CAD)W/ISAI BILAT IMPRESSION: Stable bilateral screening mammogram. Yearly follow-up mammogram recommended. (A) ASSESSMENT CATEGORY: BIRADS Category 1: Negative. A letter regarding these results will be sent to the patient by the facility within 30 days. Approximately 10% of breast cancers are not detected by mammography. A normal mammogram should not delay biopsy of a clinically suspicious abnormality. [id number] Electronically Signed: Eugene Castaneda MD at 11:20 EDT , Service support ,
== END ==
PROVIDERS: PCP Family Medicine; Referring Provider Obstetrics & Gynecology; Visit Provider Obstetrics & Gynecology
DX: Z12.31 Encounter for screening mammogram for malignant neoplasm of breast (principal)
CPT/HCPCS: 77063; 77067

== ENCOUNTER 2021-05-13 10:00 | Outpatient (RCR) | payer OTHER, SELFPAY ==
[2021-02-15 10:02] VITALS: BMI 38.0
[2021-04-09 06:16] VITALS: BMI 36.8
--- NOTE | 2021-04-16 09:14 | HP.PTEVAL_ITS ---
Patient's Visit Information BAY AVERY is a 51 year old F referred to Physical Therapy by Dr. Kedar Khan DO with a diagnosis of R TKA. Date of Evaluation: 04/15/21 Physical Therapist: Eitan Lemus DPT - Visit Plan Frequency: 2x /Week Duration: 4 Weeks Plan: Start with ROM, progressing HEP per visits as her visits are limited. Progress functional strengthening and gait mechanics as tolerated. Ice/vaso if needed for edema control. - Subjective Pt. is here today for her initial evaluation with diagnosis of R TKA. DOS: 04/09/21. Pt. arrives today using FWW with good tolerance. PT. reports not doing exercises at home, but has been mostly resting. She is known to this PT from previous L knee arthroplasty. Pt. reports overall doing well, but is having increased pain. Pt. reports doing okay sleeping, but is having pain with getting around the house. She is not driving yet. No N/T in either LE, denies calf pain, denies shortness of breath, blurred vision or chest pain. She has been trying to proper her leg up and walk as much as tolerated. Pt. has been taking tramadol for pain. She is hopeful to get back to recreational walking and house hold work without limitations. - Pain R knee Pain Intensity (Out of 10): 4 Pain Intensity Range: 2, 8 - Objective POSTURE: Pt. has decent posture in stance. Pt. has slight lateral wt. shift to L side. She is able to stand without use of AD. PALPATION: Pt. has tenderness along anterior aspect of her R knee. Marked swelling noted. 6cm increase at patella and 4cm increase at quad from R to L side. Negative homans sign. Pt. has no signs of infection. She did have one bandage over medial aspsect of incision due to slight drainage. Cont. to monitor. NEURO: Pt. has normal sensation throughout BLEs. Normal Achilles DTR bilaterally. ROM: R knee AROM 0-5-78deg. PROM 0-0-91deg. Pt. has tightness in B HS. MMT: LLE- 5/5 throughout. RLE- ankle 5/5 throughout; knee- ext 3/5, flexion 4-/5; hip: flexion 4/5, abd 4-/5, ext 4/5. GAIT: Pt. ambulates with FWW with fwrd lean. Pt. reports overall doing well. She has good tolerance with gait. She lacks TKE during R stance phase and decreased step length on the L side. Decreased tempo noted. TU.5sec. with FWW. WOMAC: 46/96 - Goals Goal 1:: LTG: Pt. to be I with HEP. Goal Time Frame: 4-6 Weeks Goal 2:: STG: pt. to have decreased edema in RLE equal to L LE allowing for improved healing process. Goal Time Frame: 2-4 Weeks Goal 3:: STG: Pt. to have increased R knee ROM to 0-0-120 deg AROM without increase in symptoms. Goal Time Frame: 2-4 Weeks Goal 4:: LTG: Pt. to have increased RLE strength increased at least 4+/5 throughout. Goal Time Frame: 4-6 Weeks Goal 5:: LTG: Pt. to negotiate 1 flight of steps with reciprocal pattern with 1 HR. Goal Time Frame: 4-6 Weeks - Rehabilitation Potential Physical Therapy Diagnosis: Pt. has signs and symptoms consistent with R TKA. She has subsequent hypomobility, weakness and difficulty with gait. She would benefit from PT to address the above limitations progressing towards 120deg of flexion, 0deg of extension, 4+/5 strength throughout BLEs and ambulating unlimited distances without increase in symptoms without AD. Rehabilitation Potential: Excellent - Anticipated Interventions Patient/Client Instruction: Educate patient on: Condition, Plan of Care, Risk Factors, Benefits of Fitness Program For the Purpose of:: To improve decision making, To facilitate caregiver knowledge, To improve self management, To prevent re-injury, To improve ability to perform tasks related to life management Therapeutic Exercise to Include: Strength training, Power training, Balance training, Postural training, Flexibilty training, Gait and locomotor training, Passive ROM, Active ROM For the Purpose of:: To decrease pain, To decrease swelling/inflammation, To increase ROM, To improve nutrient delivery to tissue, To increase oxygenation perfusion, To improve muscle performance and motor function, To improve gait and locomotor functions, To improve health of tissue, To decrease soft tissue restriction, To increase flexibility/ROM, To improve balance, To improve safety with gait Manual Therapy Techniques to Include: Scar massage, Manual lymph drainage, Mobilization, Passive ROM, Soft tissue mobilization For the Purpose of:: To decrease pain, To decrease swelling/inflammation, To increase ROM Cryotherapy (ice pack, ice massage): Yes Vasopneumatic device: Yes For the Purpose of:: To decrease pain, To decrease swelling/inflammation, To increase ROM Thank you for the opportunity to evaluate your patient. For Medicare and Medicare HMO plans, please review the plan of care and approve it. It will need to be FAXED BACK to us at [phone] for Medicare purposes. For Medicare only, by signing this I certify the plan of care. Please let me know if there are questions or concerns regarding this plan of care. Physician Signature: _Date:
--- NOTE | 2021-09-24 11:41 | HP.PT.NRP ---
BAY AVERY was seen in my office for initial evaluation on 04/15/21. The following Plan of Care was established for this patient: Initial Frequency: 2x /Week Initial Duration: 4 Weeks Patient/Client Instruction: Educate patient on: Condition, Plan of Care, Risk Factors, Benefits of Fitness Program For the Purpose of:: To improve decision making, To facilitate caregiver knowledge, To improve self management, To prevent re-injury, To improve ability to perform tasks related to life management Therapeutic Exercise to Include: Strength training, Power training, Balance training, Postural training, Flexibilty training, Gait and locomotor training, Passive ROM, Active ROM For the Purpose of:: To decrease pain, To decrease swelling/inflammation, To increase ROM, To improve nutrient delivery to tissue, To increase oxygenation perfusion, To improve muscle performance and motor function, To improve gait and locomotor functions, To improve health of tissue, To decrease soft tissue restriction, To increase flexibility/ROM, To improve balance, To improve safety with gait Manual Therapy Techniques to Include: Scar massage, Manual lymph drainage, Mobilization, Passive ROM, Soft tissue mobilization For the Purpose of:: To decrease pain, To decrease swelling/inflammation, To increase ROM Cryotherapy (ice pack, ice massage): Yes Vasopneumatic device: Yes For the Purpose of:: To decrease pain, To decrease swelling/inflammation, To increase ROM This patient was last seen in our office 05/13/21. Pertinent comments regarding their Physical therapy will appear below: Pt. was seen for her TKA. Pt. was doing well, but was limited in her visits. She was concerned about this and ended up cancelling her visit. Pt. has not been seen in several months and will be DC from PT at this point in time. At this point I will be discontinuing this patient from physical therapy. I would be happy to see this patient again in the future if found appropriate by the physician. Thank you! Eitan Bridgesos, DPT Balance/Gait/Functional tests - Balance/Special Test Scores Lower Extremity Functional Score: 22
== END 2021-05-13 19:00 | disposition home or self-care (01) ==
LOC: PT 10:00
PROVIDERS: PCP Family Medicine; Referring Provider Orthopaedic Surgery; Visit Provider Orthopaedic Surgery
DX: Z47.1 Aftercare following joint replacement surgery (principal); Z96.651 Presence of right artificial knee joint
CPT/HCPCS: 97110; 97161

== ENCOUNTER → 2022-02-05 | Outpatient (CLI) | payer OTHER, SELFPAY ==
[2022-02-05 09:52] LABS: Mucous, Urine 0 SEEN /hpf (<or=2+); Red Blood Cells-Urine 0 SEEN /hpf (0-5); White Blood Cells 0 SEEN /hpf (0-5)
[2022-02-05 11:57] LABS: Color, Urine Yellow (Yellow); Glucose, Dipstick Normal (Normal); Ketone-Dipstick Negative (Negative); Leukocyte Esterase-Dipstick Negative /ul (Negative); Nitrite-Dipstick Negative (Negative); Occult Blood-Urine Negative /ul (Negative); Protein-Dipstick Negative (Negative); Urine Bilirubin Dipstick Negative (Negative); Urine Clarity Sl. Cloudy (Clear); Urine Urobilinogen Normal (Normal)
[2022-02-05 11:59] LABS: Absolute Lymphocyte Count 1.96 X10^3/uL (0.83-4.51); Basophil# 0.05 X10^3/uL; Basophil% 0.6 % (0-1); Eosinophil# 0.27 X10^3/uL; Eosinophils% 3.4 % (0-5); Hematocrit 37.3 % (37-47); Hemoglobin 11.8 g/dL (12.0-15.0); Lymphocyte # 1.96 X10^3/ul (0.83-4.51); Mean Corp Hgb Conc 31.6 g/dL (32-36); Mean Corpuscular Hgb 28.1 pg (27.0-32.0); Mean Corpuscular Volume 88.8 fL (81-99); Mean Platelet Vol. 8.8 fl (6.2-12.0); Monocyte% 6.4 % (0-10); NRBC Flagged by Analyzer 0 % (0-5); Neutrophil # 4.98 X10^3/uL (2.7-7.7); Neutrophil % 63.7 % (47-70); Platelet Count 443 K/mm3 (150-450); RBC Distribution Width CV 13.7 % (11.6-14.6); RBC Distribution Width SD 44.4 fl (35.1-43.9); White Blood Count 7.8 K/mm3 (4.4-11.0)
[2022-02-05 12:07] LABS: Bacteria 1+ /hpf (None Seen); Squamous Epithelial Cells - UA 0-5 SEEN /hpf (5-10)
[2022-02-05 12:31] LABS: ALB/GLOB Ratio 0.9 RATIO (0.9-2.4); AST(SGOT) 22 U/L (15-37); Alanine Aminotransfer ALT/SGPT 45 U/L (13-56); Albumin, Serum 3.7 g/dL (3.2-5.0); Alkaline Phosphatase 60 U/L (45-117); Anion Gap 8 (5-15); BUN 12 mg/dL (7-18); BUN/Creat Ratio 21.1 RATIO (10-20); Calcium,Total 9.9 mg/dL (8.5-10.1); Chloride 103 mmol/L (98-107); Creatinine, Serum 0.57 mg/dL (0.55-1.02); EST Glomerular Filtration Rate 118 mL/min (>60); Est Glom Filt Rate - Afr Amer 143 mL/min (>60); Globulin 4.2 g/dL (2.2-4.2); Glucose 97 mg/dL (74-106); Potassium 3.9 mmol/L (3.5-5.1); Protein, Total 7.9 g/dL (6.4-8.2); Sodium Level 137 mmol/L (136-145); Thyroid Stim Hormone (TSH) 2.09 uIU/mL (0.358-3.74)
[2022-02-06 11:16] LABS: Vitamin B12 820 pg/mL (211-911)
[2022-02-06 11:18] LABS: Ferritin 100 ng/mL (8-252); Iron 54 ug/dL (50-170); Iron Binding Capacity,Total 395 ug/dL (250-450); PERCENT IRON SATURATION 13.7 % (15.0-55.0)
== END | disposition home or self-care (01) ==
LOC: MFPLAB 09:47
PROVIDERS: PCP Family Medicine; Referring Provider Family Medicine; Visit Provider Family Medicine
DX: D64.9 Anemia, unspecified (principal)
CPT/HCPCS: 36415; 80053; 81001; 82607; 82728; 83540; 83550; 84443; 85025

== ENCOUNTER → 2022-03-06 | Outpatient (CLI) | payer OTHER, SELFPAY | END | disposition home or self-care (01) | LOC: MFPLAB 10:15 | PROVIDERS: PCP Family Medicine; Referring Provider Family Medicine; Visit Provider Family Medicine | DX: D64.9 Anemia, unspecified (principal) | CPT/HCPCS: 36415; 82746 ==

== ENCOUNTER → 2022-05-29 | Outpatient (CLI) | payer OTHER, SELFPAY ==
--- NOTE | 2022-05-29 10:31 | BI_ITS ---
MAMMOGRAPHY - BILATERAL SCREENING REASON FOR EXAM: Female, 52 years old. Routine annual screening examination. PERTINENT HISTORY: Non-contributory. TECHNIQUE: Digital bilateral breast isai (3D mammographic acquisition) in the CC and MLO projections. 2-D mediolateral oblique (MLO) and craniocaudad (CC) views of both breasts were obtained. CAD: Full Field Digital Mammography with Computer Added Detection was performed. COMPARISON: Comparison is made with prior study dated 05/02/2021 and 04/13/2020. FINDINGS: Breast Composition: The breasts are heterogeneously dense, which may obscure small masses. There are no dominant masses or suspicious calcifications. A tissue clip marker is seen in the deep inferior central portion of the left breast in keeping with history of prior ultrasound-guided biopsy. No other significant abnormalities are identified. There has been no significant change since the prior study. BI/SCRN MAMM (CAD)W/ISAI BILAT IMPRESSION: Stable bilateral screening mammogram. Yearly follow-up mammogram recommended. (A) ASSESSMENT CATEGORY: BIRADS Category 2: Benign. A letter regarding these results will be sent to the patient by the facility within 30 days. Approximately 10% of breast cancers are not detected by mammography. A normal mammogram should not delay biopsy of a clinically suspicious abnormality. [id number] Electronically Signed: Eugene Castaneda MD at 11:22 EDT ,
== END | disposition home or self-care (01) ==
LOC: OPBI 10:30
PROVIDERS: PCP Family Medicine; Visit Provider Obstetrics & Gynecology
DX: Z12.31 Encounter for screening mammogram for malignant neoplasm of breast (principal)
CPT/HCPCS: 77063; 77067

== ENCOUNTER → 2022-11-20 | Outpatient (CLI) | payer OTHER, SELFPAY ==
[2022-11-27 17:46] LABS: HPV APTIMA, High Risk Negative (Negative)
== END | disposition home or self-care (01) ==
LOC: LABSPEC 15:51
PROVIDERS: PCP Family Medicine; Visit Provider Obstetrics & Gynecology
DX: Z01.419 Encounter for gynecological examination (general) (routine) without abnormal findings (principal)
CPT/HCPCS: 87624; 88175; G0145

== ENCOUNTER → 2022-12-02 | Outpatient (CLI) | payer OTHER, SELFPAY ==
--- NOTE | 2022-12-02 10:00 | RAD_ITS ---
STUDY: X-RAY - RIGHT HAND REASON FOR EXAM: Female, 52 years old. Joint swelling TECHNIQUE: 3 view(s) of the hand. COMPARISON: None. FINDINGS: Normal radiocarpal articulation. Normal distal radioulnar joint. Normal visualized carpal bones. Normal carpal articulations Normal carpometacarpal articulation of the thumb. Normal second through fifth carpometacarpal joints. Normal metacarpi. Normal metacarpophalangeal joint of the thumb. Normal interphalangeal joint of the thumb. Normal proximal and distal phalanges of the thumb. Normal metacarpophalangeal joints of the second through fifth fingers. Normal proximal and distal interphalangeal joints of the second through fifth fingers. Normal phalanges of the second through fifth fingers. Soft tissue swelling. RAD/Hand Min 3 Views IMPRESSION: Soft tissue swelling. Electronically Signed: Eugene Castaneda MD at 15:16 EST ,
--- NOTE | 2022-12-02 10:00 | RAD_ITS ---
STUDY: X-RAY - LEFT HAND REASON FOR EXAM: Female, 52 years old. Joint swelling TECHNIQUE: 3 view(s) of the hand. COMPARISON: None. FINDINGS: Normal radiocarpal articulation. Normal distal radioulnar joint. Normal visualized carpal bones. Normal carpal articulations Normal carpometacarpal articulation of the thumb. Normal second through fifth carpometacarpal joints. Normal metacarpi. Normal metacarpophalangeal joint of the thumb. Normal interphalangeal joint of the thumb. Normal proximal and distal phalanges of the thumb. Normal metacarpophalangeal joints of the second through fifth fingers. Normal proximal and distal interphalangeal joints of the second through fifth fingers. Normal phalanges of the second through fifth fingers. Soft tissue swelling. RAD/Hand Min 3 Views IMPRESSION: Soft tissue swelling. Electronically Signed: Eugene Castaneda MD at 15:17 EST ,
[2022-12-02 10:04] LABS: Bacteria 0 SEEN /hpf (None Seen); Mucous, Urine 0 SEEN /hpf (<or=2+); Red Blood Cells-Urine 0 SEEN /hpf (0-5); Squamous Epithelial Cells - UA 0 SEEN /hpf (5-10); White Blood Cells 0 SEEN /hpf (0-5)
[2022-12-02 12:18] LABS: Absolute Lymphocyte Count 1.85 X10^3/uL (0.83-4.51); Absolute Neutrophil Count 3.2 X10^3/uL (2.0-7.7); Basophil# 0.05 X10^3/uL; Basophil% 0.8 % (0-1); Eosinophil# 0.28 X10^3/uL; Eosinophils% 4.7 % (0-5); Hematocrit 38.7 % (37-47); Hemoglobin 12.4 g/dL (12.0-15.0); Lymphocyte # 1.85 X10^3/ul (0.83-4.51); Lymphocyte % 31.3 % (19-41); Mean Corpuscular Hgb 28.6 pg (27.0-32.0); Mean Corpuscular Volume 89.4 fL (81-99); Mean Platelet Vol. 9.6 fl (6.2-12.0); Monocyte# 0.52 X10^3/uL; Monocyte% 8.8 % (0-10); NRBC Flagged by Analyzer 0 % (0-5); Neutrophil % 54.2 % (47-70); Platelet Count 324 K/mm3 (150-450); RBC Distribution Width CV 13.1 % (11.6-14.6); Red Blood Count 4.33 M/mm3 (4.2-5.4); White Blood Count 5.9 K/mm3 (4.4-11.0)
[2022-12-02 12:19] LABS: Erythrocyte Sedimentation Rate 26 mm/hr (0-30)
[2022-12-02 12:23] LABS: Color, Urine Yellow (Yellow); Glucose, Dipstick Normal (Normal); Ketone-Dipstick Negative (Negative); Leukocyte Esterase-Dipstick Negative /ul (Negative); Nitrite-Dipstick Negative (Negative); Occult Blood-Urine Negative /ul (Negative); Protein-Dipstick Negative (Negative); Urine Bilirubin Dipstick Negative (Negative); Urine Clarity Clear (Clear); Urine Urobilinogen Normal (Normal)
[2022-12-02 12:29] LABS: ALB/GLOB Ratio 0.9 RATIO (0.9-2.4); AST(SGOT) 16 U/L (15-37); Alanine Aminotransfer ALT/SGPT 29 U/L (13-56); Albumin, Serum 3.8 g/dL (3.2-5.0); Alkaline Phosphatase 60 U/L (45-117); Anion Gap 6 (5-15); BUN 19 mg/dL (7-18); BUN/Creat Ratio 35.8 RATIO (10-20); Calcium,Total 9.6 mg/dL (8.5-10.1); Chloride 103 mmol/L (98-107); Cholesterol 198 mg/dL (200); Creatinine, Serum 0.53 mg/dL (0.55-1.02); EST Glomerular Filtration Rate 127 mL/min (>60); Est Glom Filt Rate - Afr Amer 154 mL/min (>60); Globulin 4.1 g/dL (2.2-4.2); Glucose 97 mg/dL (74-106); High Density Lipoprotein 37 mg/dL; Protein, Total 7.9 g/dL (6.4-8.2); Rheumatoid Factor < 10.0 IU/mL (<15); Sodium Level 136 mmol/L (136-145); Thyroid Stim Hormone (TSH) 1.64 uIU/mL (0.358-3.74); Triglycerides 328 mg/dL; Very Low Density Lipoprotein 66 mg/dL (5-40)
[2022-12-05 19:02] LABS: ANTINUCLEAR ANTIBODIES DIRECT Negative (Negative)
== END | disposition home or self-care (01) ==
LOC: MTLAB 09:57
PROVIDERS: PCP Family Medicine; Referring Provider Family Medicine; Visit Provider Family Medicine
DX: I10 Essential (primary) hypertension (principal); M25.40 Effusion, unspecified joint
CPT/HCPCS: 73130; 80053; 80061; 81001; 84443; 85025; 85652; 86038; 86431

== ENCOUNTER → 2023-05-21 | Outpatient (CLI) | payer OTHER, SELFPAY ==
[2023-05-21 09:21] LABS: Bacteria 0 SEEN /hpf (None Seen); Mucous, Urine 0 SEEN /hpf (<or=2+); Red Blood Cells-Urine 0 SEEN /hpf (0-5); White Blood Cells 0 SEEN /hpf (0-5)
[2023-05-21 10:08] LABS: Color, Urine Yellow (Yellow); Glucose, Dipstick Normal (Normal); Ketone-Dipstick Negative (Negative); Leukocyte Esterase-Dipstick Negative /ul (Negative); Nitrite-Dipstick Negative (Negative); Occult Blood-Urine Negative /ul (Negative); Protein-Dipstick Negative (Negative); Urine Bilirubin Dipstick Negative (Negative); Urine Clarity Clear (Clear); Urine Urobilinogen Normal (Normal)
[2023-05-21 10:09] LABS: Absolute Lymphocyte Count 1.61 X10^3/uL (0.83-4.51); Absolute Neutrophil Count 1.9 X10^3/uL (2.0-7.7); Basophil# 0.06 X10^3/uL; Basophil% 1.4 % (0-1); Eosinophil# 0.18 X10^3/uL; Eosinophils% 4.2 % (0-5); Hematocrit 38.7 % (37-47); Hemoglobin 12.6 g/dL (12.0-15.0); Lymphocyte # 1.61 X10^3/ul (0.83-4.51); Lymphocyte % 37.9 % (19-41); Mean Corp Hgb Conc 32.6 g/dL (32-36); Mean Corpuscular Hgb 29.2 pg (27.0-32.0); Mean Corpuscular Volume 89.8 fL (81-99); Mean Platelet Vol. 9.2 fl (6.2-12.0); Monocyte# 0.45 X10^3/uL; Monocyte% 10.6 % (0-10); NRBC Flagged by Analyzer 0 % (0-5); Neutrophil # 1.94 X10^3/uL (2.7-7.7); Neutrophil % 45.7 % (47-70); Platelet Count 311 K/mm3 (150-450); RBC Distribution Width CV 12.6 % (11.6-14.6); RBC Distribution Width SD 41.4 fl (35.1-43.9); Red Blood Count 4.31 M/mm3 (4.2-5.4); White Blood Count 4.3 K/mm3 (4.4-11.0)
[2023-05-21 10:24] LABS: Squamous Epithelial Cells - UA 0-5 SEEN /hpf (5-10)
[2023-05-21 10:30] LABS: Vitamin B12 781 pg/mL (211-911)
[2023-05-21 11:28] LABS: AST(SGOT) 19 U/L (15-37); Alanine Aminotransfer ALT/SGPT 34 U/L (13-56); Albumin, Serum 3.8 g/dL (3.2-5.0); Alkaline Phosphatase 58 U/L (45-117); Anion Gap 7 (5-15); BUN 16 mg/dL (7-18); BUN/Creat Ratio 32.9 RATIO (10-20); Calcium,Total 9.6 mg/dL (8.5-10.1); Chloride 101 mmol/L (98-107); Cholesterol 183 mg/dL (200); Creatinine, Serum 0.49 mg/dL (0.55-1.02); EST Glomerular Filtration Rate 141 mL/min (>60); Est Glom Filt Rate - Afr Amer 170 mL/min (>60); Ferritin 88 ng/mL (8-252); Glucose 90 mg/dL (74-106); High Density Lipoprotein 43 mg/dL; Iron 65 ug/dL (50-170); Iron Binding Capacity,Total 386 ug/dL (250-450); Potassium 3.9 mmol/L (3.5-5.1); Protein, Total 7.8 g/dL (6.4-8.2); Sodium Level 136 mmol/L (136-145); Thyroid Stim Hormone (TSH) 2.14 uIU/mL (0.358-3.74); Triglycerides 208 mg/dL; Very Low Density Lipoprotein 42 mg/dL (5-40)
== END | disposition home or self-care (01) ==
LOC: MFPLAB 09:18
PROVIDERS: PCP Family Medicine; Visit Provider Family Medicine
DX: I10 Essential (primary) hypertension (principal); D64.9 Anemia, unspecified
CPT/HCPCS: 36415; 80053; 80061; 81001; 82607; 82728; 82746; 83540; 83550; 84443; 85025

== ENCOUNTER → 2023-06-05 | Outpatient (CLI) | payer OTHER, SELFPAY ==
--- NOTE | 2023-06-05 09:59 | BI_ITS ---
MAMMOGRAPHY - BILATERAL SCREENING REASON FOR EXAM: Female, 53 years old. Routine annual screening examination. PERTINENT HISTORY: Non-contributory. History of prior left ultrasound-guided breast biopsy. TECHNIQUE: Digital bilateral breast isai (3D mammographic acquisition) in the CC and MLO projections. 2-D mediolateral oblique (MLO) and craniocaudad (CC) views of both breasts were obtained. CAD: Full Field Digital Mammography with Computer Added Detection was performed. COMPARISON: Comparison is made with prior study dated May 29, 2022 and May 02, 2021. FINDINGS: Breast Composition: The breasts are heterogeneously dense, which may obscure small masses. There are no dominant masses or suspicious calcifications. The tissue clip marker is seen in the inferior deep central portion of the left breast in keeping with prior history of ultrasound guided breast biopsy. No other significant abnormalities are identified. There has been no significant change since the prior study. BI/SCRN MAMM (CAD)W/ISAI BILAT IMPRESSION: Stable bilateral screening mammogram. Yearly follow-up mammogram recommended. (A) ASSESSMENT CATEGORY: BIRADS Category 2: Benign. A letter regarding these results will be sent to the patient by the facility within 30 days. Approximately 10% of breast cancers are not detected by mammography. A normal mammogram should not delay biopsy of a clinically suspicious abnormality. [id number] Electronically Signed: Eugene Castaneda MD at 11:09 EDT ,
== END | disposition home or self-care (01) ==
LOC: OPBI 09:58
PROVIDERS: PCP Family Medicine; Referring Provider Obstetrics & Gynecology; Visit Provider Obstetrics & Gynecology
DX: Z12.31 Encounter for screening mammogram for malignant neoplasm of breast (principal)
CPT/HCPCS: 77063; 77067

== ENCOUNTER → 2024-05-12 | Outpatient (CLI) | payer OTHER, SELFPAY ==
[2024-05-12 10:24] LABS: Bacteria 0 SEEN /hpf (None Seen); Mucous, Urine 0 SEEN /hpf (<or=2+)
[2024-05-12 12:20] LABS: Absolute Lymphocyte Count 1.87 X10^3/uL (0.83-4.51); Absolute Neutrophil Count 2.5 X10^3/uL (2.0-7.7); Basophil# 0.05 X10^3/uL; Eosinophils% 3.9 % (0-5); Hematocrit 38.4 % (37-47); Hemoglobin 12.5 g/dL (12.0-15.0); Lymphocyte # 1.87 X10^3/ul (0.83-4.51); Lymphocyte % 36.2 % (19-41); Mean Corp Hgb Conc 32.6 g/dL (32-36); Mean Corpuscular Hgb 29.2 pg (27.0-32.0); Mean Corpuscular Volume 89.7 fL (81-99); Mean Platelet Vol. 9.5 fl (6.2-12.0); Monocyte# 0.58 X10^3/uL; Monocyte% 11.2 % (0-10); NRBC Flagged by Analyzer 0 % (0-5); Neutrophil # 2.46 X10^3/uL (2.7-7.7); Neutrophil % 47.5 % (47-70); Platelet Count 313 K/mm3 (150-450); RBC Distribution Width CV 12.4 % (11.6-14.6); RBC Distribution Width SD 40.5 fl (35.1-43.9); Red Blood Count 4.28 M/mm3 (4.2-5.4); White Blood Count 5.2 K/mm3 (4.4-11.0)
[2024-05-12 12:35] LABS: Color, Urine Yellow (Yellow); Glucose, Dipstick Normal (Normal); Ketone-Dipstick Negative (Negative); Leukocyte Esterase-Dipstick Negative /ul (Negative); Nitrite-Dipstick Negative (Negative); Occult Blood-Urine Negative /ul (Negative); Protein-Dipstick Negative (Negative); Specific Gravity, Urine 1.015 (1.002-1.030); Urine Bilirubin Dipstick Negative (Negative); Urine Clarity Clear (Clear); Urine Urobilinogen Normal (Normal)
[2024-05-12 12:44] LABS: Red Blood Cells-Urine 0-5 SEEN /hpf (0-5); Squamous Epithelial Cells - UA 0-5 SEEN /hpf (5-10); White Blood Cells 0-5 SEEN /hpf (0-5)
[2024-05-12 12:55] LABS: AST(SGOT) 19 U/L (15-37); Alanine Aminotransfer ALT/SGPT 32 U/L (13-56); Albumin, Serum 3.9 g/dL (3.2-5.0); Alkaline Phosphatase 52 U/L (45-117); Anion Gap 5 (5-15); BUN 14 mg/dL (7-18); BUN/Creat Ratio 27.8 RATIO (10-20); Calcium,Total 9.6 mg/dL (8.5-10.1); Chloride 105 mmol/L (98-107); Cholesterol 209 mg/dL (200); EST Glomerular Filtration Rate 135 mL/min (>60); Est Glom Filt Rate - Afr Amer 163 mL/min (>60); Globulin 3.8 g/dL (2.2-4.2); Glucose 98 mg/dL (74-106); High Density Lipoprotein 47 mg/dL; Magnesium 2.1 mg/dL (1.6-2.6); Potassium 3.8 mmol/L (3.5-5.1); Protein, Total 7.7 g/dL (6.4-8.2); Sodium Level 135 mmol/L (136-145); Thyroid Stim Hormone (TSH) 1.68 uIU/mL (0.358-3.74); Triglycerides 158 mg/dL; Very Low Density Lipoprotein 32 mg/dL (5-40)
== END | disposition home or self-care (01) ==
PROVIDERS: PCP Family Medicine; Referring Provider Family Medicine; Visit Provider Family Medicine
DX: I10 Essential (primary) hypertension (principal)
CPT/HCPCS: 36415; 80053; 80061; 81001; 83735; 84443; 85025

== ENCOUNTER → 2024-06-06 | Outpatient (CLI) | payer OTHER, SELFPAY ==
--- NOTE | 2024-06-06 10:48 | BI_ITS ---
MAMMOGRAPHY - BILATERAL SCREENING REASON FOR EXAM: Female, 54 years old. Routine annual screening examination. PERTINENT HISTORY: Non-contributory. History of prior left ultrasound-guided breast biopsy. TECHNIQUE: Digital bilateral breast isai (3D mammographic acquisition) in the CC and MLO projections. 2-D mediolateral oblique (MLO) and craniocaudad (CC) views of both breasts were obtained. CAD: Full Field Digital Mammography with Computer Added Detection was performed. COMPARISON: Comparison is made with prior study dated June 05, 2023 and May 29, 2022. FINDINGS: Breast Composition: The breasts are heterogeneously dense, which may obscure small masses. There are no dominant masses or suspicious calcifications. A tissue clip marker is seen in the inferior deep central portion of the left breast. No other significant abnormalities are identified. There has been no significant change since the prior study. BI/SCRN MAMM (CAD)W/ISAI BILAT IMPRESSION: Stable bilateral screening mammogram. Yearly follow-up mammogram recommended. (A) ASSESSMENT CATEGORY: BIRADS Category 2: Benign. A letter regarding these results will be sent to the patient by the facility within 30 days. Approximately 10% of breast cancers are not detected by mammography. A normal mammogram should not delay biopsy of a clinically suspicious abnormality. [id number] Electronically Signed: Eugene Castaneda MD at 12:43 EDT ,
== END | disposition home or self-care (01) ==
LOC: OPBI 10:48
PROVIDERS: PCP Family Medicine; Referring Provider Obstetrics & Gynecology; Visit Provider Obstetrics & Gynecology
DX: Z12.31 Encounter for screening mammogram for malignant neoplasm of breast (principal)
CPT/HCPCS: 77063; 77067

== ENCOUNTER → 2024-08-22 | Outpatient (CLI) | payer OTHER, SELFPAY | END | disposition home or self-care (01) | PROVIDERS: PCP Family Medicine; Referring Provider Student in an Organized Health Care Education/Training Program; Visit Provider Student in an Organized Health Care Education/Training Program | DX: Z51.81 Encounter for therapeutic drug level monitoring (principal); Z79.899 Other long term (current) drug therapy | CPT/HCPCS: 36415; 80178 ==

== ENCOUNTER → 2025-06-06 | Outpatient (CLI) | payer OTHER, SELFPAY ==
--- NOTE | 2025-06-06 10:50 | RAD_ITS ---
PROCEDURE: HAND MIN 3 VIEWS 06/06/2025 REASON FOR EXAM: PAIN TECHNIQUE: Left hand three views COMPARISON: December 02, 2022 FINDINGS: There is no fracture or dislocation identified. There is no significant erosive disease. The joint spaces are maintained. There is no focal soft tissue abnormality or visible radiopaque foreign body. There is no visible atherosclerosis. RAD/Hand Min 3 Views IMPRESSION: No fracture or dislocation is identified. Reading Location: [facility]
--- NOTE | 2025-06-06 10:50 | RAD_ITS ---
PROCEDURE: HAND MIN 3 VIEWS 06/06/2025 REASON FOR EXAM: PAIN, SWELLING TECHNIQUE: Right hand three views COMPARISON: December 02, 2022 FINDINGS: There is no acute fracture or dislocation identified. The joint spaces are maintained. There is no significant erosive disease. There is no focal soft tissue swelling or visible radiopaque foreign body. There is no visible atherosclerosis. RAD/Hand Min 3 Views IMPRESSION: No fracture or dislocation is identified. Reading Location: [facility]
[2025-06-06 12:34] LABS: Hematocrit 38.7 % (37-47); Hemoglobin 12.9 g/dL (12.0-15.0); Immature Granulocytes Count 0.010 X10^3/uL (0.0-0.0); Mean Corp Hgb Conc 33.3 g/dL (32-36); Mean Corpuscular Volume 89.6 fL (81-99); Mean Platelet Vol. 9.6 fl (6.2-12.0); NRBC Flagged by Analyzer 0 % (0-5); Platelet Count 310 K/mm3 (150-450); RBC Distribution Width CV 12.5 % (11.6-14.6); RBC Distribution Width SD 41.1 fl (35.1-43.9); Red Blood Count 4.32 M/mm3 (4.2-5.4); White Blood Count 6.4 K/mm3 (4.4-11.0)
[2025-06-06 13:00] LABS: AST(SGOT) 23 U/L (<=31); Alanine Aminotransfer ALT/SGPT 28 U/L (<=34); Albumin, Serum 4.6 g/dL (3.5-5.0); Alkaline Phosphatase 58 U/L (35-104); Anion Gap 13 (5-15); BUN 16 mg/dL (4-19); BUN/Creat Ratio 30.9 RATIO (10-20); Calcium,Total 10.8 mg/dL (7.6-11.0); Carbon Dioxide 24.9 mmol/L (21.0-32.0); Chloride 99 mmol/L (98-108); Cholesterol 230 mg/dL (<=200); Globulin 3.3 g/dL (2.2-4.2); Glucose 91 mg/dL (70-99); Low Density Lipoprotein Calc. 125 mg/dL; Potassium 4.0 mmol/L (3.3-5.1); Triglycerides 262 mg/dL; Very Low Density Lipoprotein 52 mg/dL (5-40); cholesterol:hdl ratio screen 4.41
[2025-06-07 14:08] LABS: ANTINUCLEAR ANTIBODIES DIRECT Negative (Negative)
== END | disposition home or self-care (01) ==
LOC: MTLAB 10:50
PROVIDERS: PCP Family Medicine; Referring Provider Family Medicine; Visit Provider Family Medicine
DX: M79.89 Other specified soft tissue disorders (principal); I10 Essential (primary) hypertension
CPT/HCPCS: 36415; 73130; 80053; 80061; 84443; 85025; 85652; 86038; 86431

== ENCOUNTER → 2025-06-12 | Outpatient (CLI) | payer OTHER, SELFPAY ==
[2025-06-12 10:44] LABS: Mucous, Urine 0 SEEN /hpf (<or=2+)
[2025-06-12 16:09] LABS: Color, Urine Yellow (Yellow); Glucose, Dipstick Normal (Normal); Ketone-Dipstick Negative (Negative); Leukocyte Esterase-Dipstick Negative /ul (Negative); Nitrite-Dipstick Negative (Negative); Occult Blood-Urine Negative /ul (Negative); Protein-Dipstick Negative (Negative); Specific Gravity, Urine 1.010 (1.002-1.030); Urine Bilirubin Dipstick Negative (Negative)
[2025-06-12 19:00] LABS: Red Blood Cells-Urine 0-5 SEEN /hpf (0-5); Squamous Epithelial Cells - UA 0-5 SEEN /hpf (5-10)
== END | disposition home or self-care (01) ==
LOC: LABSPEC 10:42
PROVIDERS: PCP Family Medicine; Referring Provider Family Medicine; Visit Provider Family Medicine
DX: I10 Essential (primary) hypertension (principal)
CPT/HCPCS: 81001

== ENCOUNTER → 2025-07-19 | Outpatient (CLI) | payer OTHER, SELFPAY ==
--- NOTE | 2025-07-19 10:15 | BI_ITS ---
EXAM: SCRN MAMM (CAD)W/ISAI BILAT DATE: 07/19/2025 CLINICAL HISTORY: F, Age 55 y/o , SCREENING MAMMOGRAM Routine screening TECHNIQUE: Procedure Code: [id number] Modality: MG Procedure: SCRN MAMM (CAD)W/ISAI BILAT COMPARISON: Prior exam(s) dated 06/06/2024. FINDINGS: TISSUE DENSITY: The breasts are heterogeneously dense, which may obscure small masses. Bilateral Breast Mammographic Findings: No significant masses, calcifications or other abnormalities are identified. No interval change BI/SCRN MAMM (CAD)W/ISAI BILAT IMPRESSION: Stable screening mammogram OVERALL FINAL ASSESSMENT BI-RADS 1: NEGATIVE. RECOMMENDATION: Routine annual follow-up in 1 Year Additional Recommendation none A letter with findings and recommendations will be mailed to the patient. Reading Location: [id number]
== END | disposition home or self-care (01) ==
PROVIDERS: PCP Family Medicine; Referring Provider Obstetrics & Gynecology; Visit Provider Obstetrics & Gynecology
DX: Z12.31 Encounter for screening mammogram for malignant neoplasm of breast (principal)
CPT/HCPCS: 77063; 77067